=== PATIENT | female | born 1950 | race Caucasian/White ===

== ENCOUNTER 2022-01-02 13:52 | Emergency (ER) | payer MEDICARE, BC, SELFPAY ==
[2022-01-02 14:05] VITALS: BP 127/72; PULSE 73; RESP 18; TEMP 36.2; O2SAT 96; BMI 23.7
--- NOTE | 2022-01-02 14:26 | ED_ITS ---
HPI - General Adult General Chief complaint: Shoulder Injury/Pain Stated complaint: Pain in right [place]oulder Time Seen by Provider: 01/02/22 14:11 History of Present Illness HPI narrative: This 71-year-old female comes in with right shoulder pain over the past few weeks. She does not report any specific injury event. She has been to a chiropractor several times without any lasting relief. She states that she is having trouble sleeping at night. She has distinct trouble raising her arm forward and empty can position. She also has difficulty raising her arm above 90?. She had similar shoulder pains in the distant past which were relieved with a steroid injection. Related Data Home Medications Medication Instructions Recorded Confirmed bupropion HCl 300 mg 24 hr tablet, mg PO 01/02/22 extended release lisinopril 10 tab 01/02/22 mg-hydrochlorothiazide 12.5 mg tablet sertraline 100 mg tablet mg 01/02/22 simvastatin 40 mg tablet mg 01/02/22 Previous Rx's Medication Instructions Recorded hydrocodone 5 mg-acetaminophen 325 1 tab PO Q4-6H PRN pain #20 tabs 01/02/22 mg tablet Allergies Allergy/AdvReac Type Severity Reaction Status Date / Time No Known Drug Allergies Allergy Verified 01/02/22 14:04 Review of Systems Status of ROS: Reports: 10 or more systems reviewed and unremarkable except as noted in History and below Narrative: Constitutional: No fevers, no weight gain or loss. Eyes: No discharge. No vision changes. HENT: No congestion, no sore throat, no ear pain. Cardiovascular: No chest pain, no palpitations. Respiratory: No shortness of breath, no wheezes, no cough. Gastrointestinal: No abdominal pain, no vomiting, no diarrhea. Genitourinary: No dysuria, no hematuria. Musculoskeletal: Right shoulder pain with associated decreased range of motion. Skin: No rashes, no pruritis. Neurological: No dizziness, weakness, sensory change, speech change. Endo/Heme/Allergies: No bruising or bleeding. No polydipsia. Pysch: no suicidality, no anxiety, no insomnia. All other systems reviewed and are negative. Exam Narrative: Exam Narrative: Constitutional: Well-developed, well-nourished, no acute distress. HEENT: Normocephalic, atraumatic. Neck: Normal range of motion. Nontender. Supple. Heart: Regular. No murmurs. Normal rate. Intact distal pulses. Lungs: Clear to auscultation. No chest discomfort. No wheezes, rhonchi, or rales. Abdomen: Normal bowel sounds. Nontender. No rebound tenderness. Genitalia: Deferred. Back: No midline tenderness. Normal range of motion. Extremities: Right shoulder has normal parents without any sign of effusion or deformity. Empty can sign is positive. Lift-off sign is normal. Her internal and external rotation are intact. She has difficulty raising her arm above 90? due to pain. Skin: Intact. No rash. Warm. No erythema or pallor. Neurologic: No altered sensation. No weakness. Alert and oriented. Psychiatric: No suicidality. No anxiety or depression. No insomnia. Nursing notes and vitals signs are reviewed. Const: Vital Signs, click to edit/add: Vital Signs - 24 hr 01/02/22 14:05 Temperature 97.1 F L Pulse Rate [Right Pulse Oximeter] 73 Respiratory Rate 18 Blood Pressure [Le ft Upper Arm] 127/72 Pulse Oximetry 96 Oxygen Delivery Me thod Room Air Course Vital Signs Vital signs: Initial Vital Signs Temperature 97.1 F L 01/02/22 14:05 Temperature Source Temporal Artery Scan 01/02/22 14:05 Pulse Rate 73 01/02/22 14:05 Respiratory Rate 18 01/02/22 14:05 Blood Pressure 127/72 01/02/22 14:05 Blood Pressure Mean 90 01/02/22 14:05 Blood Pressure Position Supine 01/02/22 14:05 Pulse Oximetry 96 01/02/22 14:05 Oxygen Delivery Method 01/02/22 14:05 Vital Signs Temperature 97.1 F L 01/02/22 14:05 Pulse Rate 73 01/02/22 14:05 Respiratory Rate 18 01/02/22 14:05 Blood Pressure 127/72 01/02/22 14:05 Pulse Oximetry 96 01/02/22 14:05 Oxygen Delivery Method 01/02/22 14:05 Temperature 97.1 F L 01/02/22 14:05 Pulse Rate 73 01/02/22 14:05 Respiratory Rate 18 01/02/22 14:05 Blood Pressure 127/72 01/02/22 14:05 Pulse Oximetry 96 01/02/22 14:05 Oxygen Delivery Method 01/02/22 14:05 Medical Decision Making MDM Narrative Medical decision making narrative: This patient comes in with right shoulder pain that is not related to a certain injury. She is showing signs of rotator cuff impingement. In particular the supraspinatus tendon function is rather painful. She may have adhesive capsulitis. In any event she is willing to receive a therapeutic injection in the to the right shoulder joint. A mixture of 40 mg of triamcinolone with 1% lidocaine was administered by posterior approach. This was a total of 10 mL of fluid. She had some initial improvement with increased range of motion and decreased pain. I advised her to follow-up with orthopedic clinic as needed. She did also receive a prescription for some tablets of [place]. Discharge Plan Discharge Clinical Impression: Pain in right shoulder Patient Disposition: Home, Self-Care Condition: Improved Instructions: Shoulder Pain (ED) Additional Instructions: Take medication as needed and indicated. Follow up with orthopedic clinic if not improving or worsening. Prescriptions: New hydrocodone-acetaminophen 5-325 mg tablet 1 tab PO Q4-6H PRN (Reason: pain) Qty: 20 0RF No Action sertraline 100 mg tablet simvastatin 40 mg tablet bupropion HCl 300 mg tablet extended release 24 hr PO lisinopril-hydrochlorothiazide 10-12.5 mg tablet Follow Up/Referrals: Suzie Wilkins DO [Primary Care Provider] - Stand Alone Forms: [facility] Info Instructions
== END 2022-01-02 15:23 | disposition home or self-care (01) ==
PROVIDERS: Emergency Provider Emergency Medicine Emergency Medical Services; PCP Family Medicine
DX: M25.511 Pain in right shoulder (principal)
CPT/HCPCS: 20605; 99283

== ENCOUNTER 2023-07-25 10:40 | Outpatient (CLI) | payer MEDICARE, BC, SELFPAY ==
--- NOTE | 2023-07-25 11:00 | US_ITS ---
Final Report Patient: ANGELINA HOPKINS Facility:?[facility] Patient ID:?[id number] Site Patient ID:?[id number]. Site :?[id number] Study:?US Abdomen -07/25/2023 11:18:27 AM Ordering Physician:GIN FERMIN Final Report: INDICATION: PRIMARY BILIARY CHOLANGITIS COMPARISON: CT 10/25/2022, ultrasound 10/25/2022 TECHNIQUE: Real time felix scale imaging and color Doppler analysis was performed of the right upper quadrant. FINDINGS: The liver echotexture is coarsened with a macro lobular contour, as before. No intrahepatic mass by ultrasound. There is a normal appearance of the hepatic IVC and proximal abdominal aorta. There is no evidence of ascites. The gallbladder is of normal size and there are echogenic foci associated with the gallbladder wall measuring 3 millimeters or less. The gallbladder wall measures 2 mm in thickness. The common bile duct is of normal size and measures 6 mm in diameter at the level of the uriel hepatis. Hypodense structure within the pancreas has developed in the interim measuring 9 x 7 x 6 millimeters. There is no evidence of a stone or hydronephrosis within the right kidney. The right kidney measures 11.3 cm in length. IMPRESSION: Chronic liver disease. No ascites or intrahepatic mass by ultrasound. Echogenic foci within the dependent gallbladder may represent stones, adherent sludge or polyps. No biliary obstruction. Pancreatic nodule or cyst measuring 9 millimeters, new from prior studies. MRI recommended. Dictated by Lazarus Thomson MD @ 07/25/2023 11:48:42 AM (Electronic Signature)
== END 2023-07-25 10:41 | disposition home or self-care (01) ==
LOC: US 10:40
PROVIDERS: PCP Family Medicine; Visit Provider Physician Assistant
DX: K74.3 Primary biliary cirrhosis (principal); K76.9 Liver disease, unspecified; K86.2 Cyst of pancreas
CPT/HCPCS: 76705

== ENCOUNTER 2024-01-31 10:41 | Outpatient (CLI) | payer MEDICARE, BC, SELFPAY ==
--- NOTE | 2024-01-31 10:45 | CRLHL7_ITS ---
For Patients: As a result of the Century Cures Act, medical imaging exams and procedure reports are released immediately into your electronic medical record. You may view this report before your referring provider. If you have questions, please contact your health care provider. INDICATION: ADVANCED HEPATIC FIBROSIS COMPARISON: 07/25/2023 ultrasound, 10/25/2022 CT TECHNIQUE: Real time felix scale imaging and color Doppler analysis was performed of the right upper quadrant. FINDINGS: The liver echotexture is coarsened. Chronic simple cyst within the left hepatic lobe measures 9 x 8 x 7 millimeters. No intrahepatic mass. The main portal vein is patent with antegrade flow and measures 1.3 cm. There is a normal appearance of the hepatic IVC and proximal abdominal aorta. Trace ascites appears to be present. The gallbladder is of normal size and there is mild layering sludge. The gallbladder wall measures 1.5 mm in thickness. The common bile duct is of normal size and measures 6.0 mm in diameter at the level of the uriel hepatis. Cyst within the pancreas measures 6 x 8 x 5 millimeters, previously measuring 9 millimeters. There is no evidence of a stone or hydronephrosis within the right kidney. The right kidney measures 11.1 cm in length. IMPRESSION: Chronic hepatic fibrosis. Incidental subcentimeter liver cysts. Stable pancreatic cysts. Mild gallbladder sludge without biliary obstruction. Dictated by Lazarus Thomson MD @ 01/31/2024 1:32:49 PM (Electronically Signed)
== END 2024-01-31 10:42 | disposition home or self-care (01) ==
LOC: US 10:42
PROVIDERS: PCP Family Medicine; Visit Provider Internal Medicine Gastroenterology
DX: K74.02 Hepatic fibrosis, advanced fibrosis (principal); K76.89 Other specified diseases of liver; K82.9 Disease of gallbladder, unspecified
CPT/HCPCS: 76705

== ENCOUNTER 2024-07-29 09:17 | Outpatient (CLI) | payer MEDICARE, BC, SELFPAY ==
--- NOTE | 2024-07-29 09:15 | CRLHL7_ITS ---
For Patients: As a result of the Century Cures Act, medical imaging exams and procedure reports are released immediately into your electronic medical record. You may view this report before your referring provider. If you have questions, please contact your health care provider. CLINICAL HISTORY: Primary biliary cholangitis Comparison ultrasound 07/25/2023 FINDINGS: Coarse heterogeneous echotexture to the liver with nodular contour. Hypoechoic 0.9 centimeter in the left hepatic lobe again not as well visualized on the current study and appeared to represent a cyst on the prior study. This is unchanged in size. Normal directional flow in the main portal vein There is a normal appearance of the hepatic IVC and proximal abdominal aorta. There is no evidence of ascites. The gallbladder is of normal size and there is no evidence of intraluminal stones or sludge. Common tail artifact along the gallbladder wall could be seen with adenomyomatosis. The gallbladder wall measures 2 mm in thickness. The common bile duct is of normal size and measures 5 mm in diameter at the level of the uriel hepatis. Small hypoechoic area in the pancreas visualized measuring 0.6 x 0.5 x 0.5 centimeters this is not as well seen on the current study appeared more cystic on the prior study. Visualized pancreas otherwise is unremarkable. Right kidney is unremarkable. Hyperechoic area between the liver and the upper portion of the right kidney could be an area of prominent fat likely benign. This could be reassessed on follow-up imaging. IMPRESSION: 1. Cirrhotic appearance of the liver. A small 0.9 centimeter hypoechoic lesion in the left hepatic lobe unchanged in size likely reflects a small cyst not as well visualized on the current study. 2. Similar sized hypoechoic lesion in the pancreas again not as well visualized on the current study 3. Comet tail artifacts along the gallbladder wall could be seen with adenomyomatosis. 4. Hyperechoic area between the liver and upper portion of the right kidney could be an area of prominent fat likely benign and could be reassessed on follow-up imaging. Dictated by Fifi Boggs MD @ 07/31/2024 4:14:36 AM (Electronically Signed)
== END 2024-07-29 09:18 | disposition home or self-care (01) ==
LOC: US 09:19
PROVIDERS: PCP Family Medicine; Visit Provider Physician Assistant
DX: K74.3 Primary biliary cirrhosis (principal); K76.9 Liver disease, unspecified
CPT/HCPCS: 76705

== ENCOUNTER 2025-04-15 17:18 | Outpatient (CLI) | payer MEDICARE, BC, SELFPAY | END 2025-04-15 17:19 | disposition home or self-care (01) | LOC: AMB 04-18 20:46 | PROVIDERS: PCP Family Medicine; Visit Provider Emergency Medicine | DX: R42 Dizziness and giddiness (principal); R11.10 Vomiting, unspecified | CPT/HCPCS: A0425; A0427 ==

== ENCOUNTER 2025-04-15 18:01 | Observation (INO) | payer MEDICARE, BC, SELFPAY ==
--- OUTSIDE RECORDS SUMMARY | 2025-03-18 02:47 | XMS_ITS | Continuity of Care Document ---
Author Organization [facility] Address [address] [address] [place] [address] Phone Care Team Providers Care Video Manager Name Role Phone Adrianna Isaac Unavailable Unavailabl e Allergies, Adverse Reactions, Alerts Substance Reaction Status Criticality No Known Allergies Active No Inform ation Medications Medication Instructions Dosage Effective Dates (start - stop) Status Comments ursodiol 250 mg tablet take 2 tablets in the morning and 1.5 tablets in the evening daily. - Active magnesium gluconate 12.5 mg magnesium (250 mg) tablet - Active Zinc-220 50 mg zinc (220 mg) capsule - Active sertraline 100 mg tablet take 1 tablet by oral route every day 100 MG - Active BUPROPION HCL SR (unknown strength) take 1 tablet by oral route (Xl) 300mg Not Available - Active rosuvastatin 20 mg tablet take 1 tablet by oral route every day 20 MG - Active lorazepam 0.5 mg tablet take 2 tablet by oral route 3 times every day as needed 1 MG - Active Vitamin D3 50 mcg (2,000 unit) capsule - Active Alaway 0.025 % (0.035 %) eye drops instill 1 drop by ophthalmic route 2 times every day into affected eye(s) 1.00 drop - Active fluticasone propionate 50 mcg/actuation nasal spray,suspension spray 2 spray by intranasal route every day in each nostril as needed 100-100 MCG - Active Procedures Procedure Date Offic/outpt E&m Estab Mod-hi 2 Offic/outpt E&m Estab Mod-hi 4 24 Dietitian New Virtual Visit Offic/outpt E&m New Mod-hi Routine Serum Collection Advance Directives Directive Yes / No Effective Date File Name No Information Encounters Encounter Description Practice Location Reason(s) For Visit Diagnoses Date Provider Providers Copied on Encounter [facility], [address] [address], [place], [place], [id number], [place] tel:[phone] [place] [address] No Information 5 Yan Rodas. [address] [place] [address], [address], [id number], [place]. tel:[phone] [facility], [address] [address], [place], [id number], [place] tel:[phone] [place] [address] No Information Yan Rodas. [address] [place] [address], [id number], [place]. tel:[phone] [facility], [address] [address], [place], [id number], [place] tel:[phone] [facility] Advanced hepatic fibrosis 5 Yan Rodas. [address] [place] [address], [address], [id number], [place]. tel:[phone] Offic/outpt E&m Estab Mod-hi 2 [facility], [address] [address], [place], [place], [id number], [place] tel:[phone] [facility] GI Symptoms or Concerns (chief complaint) Primary biliary cholangitisEleva michael LFTsPancreatic lesion Yan Roads. [address] [place] [address], [id number], [place]. tel:[phone] Referring Provider: Referral Self, USE FOR SELF REFERRALS. [facility], [address] [address], [place], [place], [id number], [place] tel:[phone] [facility] No Information 5 Yan Rodas. [address] [facility], [facility] [address], [place], [place], [id number], [place]. tel:[phone] [facility], [address] [address], [place], [id number], [place] tel:[phone] [facility] Primary biliary cholangitis 5 Yan Rodas. [address] [facility], [facility] [address], [place], [id number], [place]. tel:[phone] [facility], [address] [address], [place], [id number], [place] tel:[phone] [facility] Advanced hepatic fibrosis 4 Agus Cooper. [address] [facility], [facility] [address], [place], [id number], [place]. tel:[phone] [facility], [address] [address], [place], [id number], [place] tel:[phone] [facility] Pancreatic lesion 4 Yan Rodas. [address] [facility], [facility] [address], [place], [id number], [place]. tel:[phone] [facility], [address] [address], [place], [place], [id number], [place] tel:[phone] [facility] Advanced hepatic fibrosisPrimary biliary cholangitis 4 Yan Rodas. [address] [facility], [facility] [address], [place], [id number], [place]. tel:[phone] [facility], [address] [address], [place], [place], [id number], [place] tel:[phone] [facility] Pancreatic lesion 4 Yan Rodas. [address] [facility], [address], [id number], [place]. tel:[phone] Offic/outpt E&m Estab Mod-hi 4 [facility], [address] [address], [place], [id number], [place] tel:[phone] [facility] GI Symptoms or Concerns (chief complaint) Primary biliary cholangitisAdvan delbert hepatic fibrosisPancreat ic lesion 4 Yan Rodas. [address] [facility], [facility] [address], [place], [id number], [place]. tel:[phone] Referring Provider: Suzie Wilkins DO, [address] [place] [address], [place], [address]. tel:[phone] [facility], [address] [address], [place], [id number], [place] tel:[phone] [facility] GI Symptoms or Concerns (chief complaint) Elevated LFTsDietary counseling and surveillance 3 Atul Redding. [address] [facility], [address], [id number], [place]. tel:[phone] Suzie Wilkins DO. tel:[phone] erring Provider: Referral Self, USE FOR SELF REFERRALS. [facility], [address] [address], [place], [id number], [place] tel:[phone] Primary biliary cholangitisEleva michael LFTs 3 No Information [facility], [address] [address], [place], [id number], [place] tel:[phone] [facility] Primary biliary cholangitis 3 Yan Rodas. [address] [place] [address], [address], [id number], [place]. tel:[phone] [facility], [address] [address], [place], [id number], [place] tel:[phone] [facility] Elevated LFTs 3 Yan Rodas. [address] [place] [address], [address], [id number], [place]. tel:[phone] Offic/outpt E&m New Mod-hi [facility], [address] [address], [place], [place], [id number], [place] tel:[phone] [facility] GI Symptoms or Concerns (chief complaint) Elevated LFTsChronic constipationAbno rmal CT scan, colon 3 Yan Rodas. [address] [facility], [facility] [address], [place], [id number], [place]. tel:[phone] Referring Provider: Suzie Wilkins DO, [address] [place], [address]. tel:[phone] [facility], [address] [address], [place], [place], [id number], [place] tel:[phone] [facility] No Information 3 Agus Cooper. [address] [facility], [facility] [address], [place], [id number], [place]. tel:[phone] Family History Family Member Type Diagnosis Age At Onset Father Problem (finding) Cirrhosis Father Problem (finding) Alcoholism Father Problem (finding) Cancer Immunizations Vaccine Date Status Comments Influenza, high-dose, split virus, quadrivalent, injectable, preservative free administered Note: [facility] bi-direct ional interface ; Source: Other Registry influenza, high-dose seasona l, quadrivalent, 0.7mL dose, preservative free administered Note: [facility] bi-direct ional interface ; Source: Other Registry Influenza, high-dose, split virus, trivalent, injectable, preservative free administered Note: [facility] bi-direct ional interface ; Source: Other Registry influenza, high dose seasona l, preservative-free administered Note: [facility] bi-direct ional interface ; Source: Other Registry Influenza, adjuvanted, inactivated, trivalent, injectable, preservative free administered Note: [facility] bi-directional interface ; Source: Other Registry Seasonal trivalent influenza vaccine, adjuvanted, preservative free administered Note: [facility] bi-direct ional interface ; Source: Other Registry Pneumovax 23 administered Note: [facility] bi-d irectional interface ; Source: Other Registry Influenza, adjuvanted, inactivated, trivalent, injectable, preservative free administered Note: [facility] bi-directional interface ; Source: Other Registry Prevnar 13 administered Note: [facility] bi-d irectional interface ; Source: Other Registry Seasonal trivalent influenza vaccine, adjuvanted, preservative free administered Note: [facility] bi-direct ional interface ; Source: Other Registry Afluria Qd administered Note: [facility] bi-directional interface ; Source: Other Registry zoster vaccine, live administered Note: [facility] bi-directional interface ; Source: Other Registry Afluria Qd administered Note: [facility] bi-directional interface ; Source: Other Registry Afluria Qd administered Note: [facility] bi-directional interface ; Source: Other Registry tetanus toxoid, reduced diphtheria toxoid, and acellular pertussis vaccine, adsorbed administered Note: [facility] b i-directional interface ; Source: Other Registry Influenza, split virus, trivalent, injectable, preservative free administered Note: [facility] bi-direct ional interface ; Source: Other Registry Influenza, seasonal, injecta ble, preservative free administered Note: [facility] bi-direct ional interface ; Source: Other Registry Influenza, split virus, trivalent, injectable, preservative free administered Note: [facility] bi-direct ional interface ; Source: Other Registry Influenza, seasonal, injecta ble, preservative free administered Note: [facility] bi-direct ional interface ; Source: Other Registry Influenza, split virus, trivalent, injectable, contains preservative administered Note: [facility] bi-direct ional interface ; Source: Other Registry Influenza, seasonal, injectable administe red Note: [facility] bi- directional interface ; Source: Other Registry Influenza, split virus, trivalent, injectable, contains preservative administered Note: [facility] bi-direct ional interface ; Source: Other Registry Influenza, seasonal, injectable administe red Note: [facility] bi- directional interface ; Source: Other Registry Influenza, split virus, trivalent, injectable, contains preservative administered Note: [facility] bi-direct ional interface ; Source: Other Registry Influenza, seasonal, injectable administe red Note: [facility] bi- directional interface ; Source: Other Registry Influenza, split virus, trivalent, injectable, contains preservative administered Note: [facility] bi-direct ional interface ; Source: Other Registry Influenza, seasonal, injectable administe red Note: [facility] bi- directional interface ; Source: Other Registry Influenza, split virus, trivalent, injectable, contains preservative administered Note: [facility] bi-direct ional interface ; Source: Other Registry Influenza, seasonal, injectable administe red Note: [facility] bi- directional interface ; Source: Other Registry Payers Payer name Insurance type Covered democrat ID Authoriza tion(s) Medicare NGS MB [id number] [facility] Medicare Supplement BL [id number] Social History Type Description Quantity Date Captured Comments Alcohol Use Details Unknown Caffeine Use Details Unknown Tobacco Use Status No Information Smoking Status No Information Sex Female Chief Complaint And Reason For Visit No Information Reason For Referral Reason For Referral No Information Plan Of Treatment Date Type Action Status Referral Ordered: CBC W/diff, Whole Blood Appointment date/timeframe: 01/25/2024 ordered Referral Ordered: follow-up visit 1 Year Appointment date/timeframe: 1 Year ordered Referral Ordered: Hepatoma Protocol Appointment date/timeframe: First Available ordered Referral Ordered: MRCP Biliary/Pancreatic Ducts WITHOUT And WITH Contrast Appointment date/timeframe: 12/10/2023 ordered Referral Ordered: follow-up visit for Dietary Counseling First Available Appointment date/timeframe: First Available ordered Referral Ordered: Hepatic Function Panel Appointment date/timeframe: 12/30/2022 ordered Referral Ordered: MRI Elastography Liver WITHOUT And WITH Contrast Appointment date/timeframe: 01/24/2023 ordered Referral Ordered: Colonoscopy Appointment date/timeframe: First Available ordered Referral Ordered: MRI Liver WITHOUT And WITH Contrast Appointment date/timeframe: 01/24/2023 ordered History Of Present Illness Encounter Date Complaint History Of Prese nt Illness GI Symptoms or Concerns Kathia Parrish is a 74-year-old female seen today for 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 Patient was previously noted to have advanced fibrosis on MRI with the elastography without evidence of portal hypertension. She was previously started on ursodiol for management of PBC.Most recent labs on 07/25/2024 included an unremarkable hepatic function panel, BMP and CBC. INR was also normal at 1.0 and AFP normal at 2.5. Abdominal ultrasound on 07/29/2024 noted a small 0.9 cm hypoechoic lesion in the left hepatic lobe unchanged in size likely reflecting a small cyst. Prior to this patient did have MRCP WWO on 08/06/23 with [facility] which noted a 0.7cm cystic lesion in the body of the pancreas-repeat MRI recommended in 12 months.Today, patient reports she has been feeling well aside from having difficulty sleeping at night. She has started taking magnesium glycinate but has not noted clear help with this. She is continuing to take ursodiol 3.5-250 mg tablets daily-she reports this is quite expensive-it had been over $300 for a 3-month supply through her insurance. She has been filling this with [employer] but still notes a 3-month supply is still overall $120.She does endorse some pruritus but notes that this is manageable. Denies any abdominal pain, abdominal distention, lower extremity edema, melena, hematochezia or confusion. Denies any alcohol consumption.She reports a bone density scan completed recently with her primary care provider-was told she has osteopenia she is on vitamin D supplement currently. GI Symptoms or Concerns Kathia Parrish is a 73-year-old female seen today for follow-up of primary biliary cholangitis.I initially saw patient in clinic on 11/20/2022. She was referred to us for concern of cirrhosis and elevated LFTs.Prior to this visit, she was seen at [facility] in the emergency room in October 2022 for a sore throat and chest pain and was found to have abnormal liver chemistries with a total bilirubin of 0.6 AST 105 ALT 148 alkaline phosphatase 352 albumin 4.7 and INR of 1.02. CBC was unremarkable. A right upper quadrant ultrasound had shown a mild micronodular appearance of the liver surface with possible cirrhosis. A subsequent CT of the abdomen and pelvis showed morphological start sequela of cirrhosis with some centimeter hypodense lesion in segment 2/3 too small to characterize. This send also noted mild circumferential wall thickening of the sigmoid colon and a large stool burden.She has a history of prior alcohol use which ended 5 years ago. She was noted to have negative negative hepatitis A and hepatitis B serologies. Also noted to be immune to the hepatitis B virus.She does have a history of liver cirrhosis in her father. She had recently been changed from simvastatin to rosuvastatin in October 2022 and had previously been on ivermectin for a couple years for COVID prophylaxis and had been taking a Berberine supplement and K2 initially in addition to a magnesium vitamin D3 and zinc supplement. She had also reported drinking a lot of Coke but had cut down at the time of our visit to 1 can a day. She did meet with our dietitian to discuss a low carbohydrate diet and further details.Given concern for liver cirrhosis and risk factors for nonalcoholic fatty liver disease including hypertension hyperlipidemia and significant consumption of sweets I had recommended she decrease intake of simple carbohydrates,. I had recommended she also stop herbal supplements and ivermectin.Regarding her constipation, and colitis on CT I had recommended a colonoscopy for further evaluation.Laboratories in November 2022 revealed a normal alpha-1 antitrypsin negative smooth muscle antibody and JIMMY. Antimitochondrial antibody was noted to be positive at a titer of 1: 320 and hepatic function panel again revealed elevated transaminases with an AST of 68 ALT 63 alkaline phosphatase 377. Celiac serologies were noted to be negative. Ferritin, Iron/TIBC wnl. As she met criteria for diagnosis of primary biliary cholangitis she was subsequently started on ursodiol 875 mg daily.MRI with with elastography was obtained on 12/20/2022 which revealed stage III-IV fibrosis with a nodular contour. Along with a subcentimeter cystic structure in the pancreatic neck/body. Follow-up MRI was recommended in 1 year.Most recently, patient underwent laboratory testing on 04/25/2023 which revealed improvement in her aminotransferases and alkaline phosphatase with normal total bilirubin. Alkaline phosphatase 213 ALT 35 AST 37.Since her last visit, patient has made significant changes in her lifestyle. She has cut back on her consumption of simple carbohydrates and is no longer drinking Coke on a daily basis. She wonders if it is okay for her to eat any bread, fruit or fibers cereal as this helps her have a bowel movement. She continues to take ursodiol as prescribed.She denies any issues with abdominal distention, lower extremity edema, melena or hematochezia. She has had issues with constipation in the past and reports she started eating a bran cereal for breakfast which helps her have a bowel movement 1-2 times per day. She has not had any pain. She had a colonoscopy completed last February and believes she was told to have this repeated in 3 years. I do not have these records but will request. She also has questions regarding what she can take for pain medications and herbal supplements. She does endorse some issues with fatigue but notes this has improved since she started taking a children's multivitamin. She does endorse some itching but reports it is not terribly bothersome. Also reports she has noted easy hair breakage that has been present for the last few years.She notes a lot of stress in her life lately and wonders if this can contribute to liver disease. She lost her grandson not too long ago and her sister recently had a stroke and is living out of state which has been very stressful for her. She is not sure if she would be interested in therapy/ counseling. Has not been getting much exercise outside of walking. GI Symptoms or Concerns New Simran ent Nutrition AssessmentAnthropometrics: 5'4.75 Wt: has lost 10lb recently, today 130lbFood and Exercise History: Trying to follow a low carb diet. Current food choices include low carb tortillas, peanut butter, cheeses, egg salad, cereal at night - all bran, lemon water, fruit smoothies with zero sugar bermudian yogurt, low carb bread, grass fed beefEstimated Energy and Nutrition Needs: 1500-1700cal/day 60g protein/day30g carb per meal<2000mg Na/dayNutrition Diagnosis:Food and nutrition related knowledge deficit related to nutrition for liver health as evidenced by patient request for information. Nutrition Discussion and Education:Met with patient for virtual visit today. Daughter in background. Patient notes that she has a history of elevated LFTs though she is uncertain, based on all her recent testing, exactly what stage her liver is in - fatty liver, cirrhosis, fibrosis, etc. I encouraged her to follow up with her [facility] medical provider regarding this to get clarification of the exact state of her liver and review her tests with her. She is currently trying to eat a low carbohydrate diet. She has done alot of online research and had many questions for me today regarding diet. These were answered to the best of my ability. She has been eating minimally processed foods as well. I encouraged her to make sure her protein intake is adequate and provided recommendations. I encouraged her to be mindful of her sodium intake as well. She will continue watching her carbohydrate intake and she has noted a 10lb weight loss with this, though she does not want to lose any more. She is not exercising currently and I encouraged her to get some form of low to moderate intensity movement most days. She was amenable to this. She is appreciative of visit today and is welcome to follow ups. GI Symptoms or Concerns Kathia Parrish is a 72 y/o female seen today at the request of Dr. Suzie Wilkins DO for concern of Cirrhosis and elevated LFTs. She is accompanied today by her daughter, Ada. She was recently seen in the Emergency room at [facility] on 10/25/2022 for concern of sore throat and chest pain. She was found to have Pleurisy. At this point she was noted to have elevated LFTs and had reportedly been started on a new medication for cholesterol about a week prior. Laboratory testing at this time revealed an unremarkable CBC, normal INR of 1.02 total bilirubin 0.6, AST 105, ALT 148, alkaline phosphatase 352 albumin 4.7. Right upper quadrant ultrasound at that time revealed a micronodular appearance of the liver surface with possible cirrhotic liver morphology. CT of the abdomen and pelvis morphologic sequela of cirrhosis with a subcentimeter hypodense lesion in segment 2/3 2 small to characterize. Correlation was recommended with alpha fetoprotein. She was also noted to have mild circumferential wall thickening of the sigmoid colon potentially reflecting colitis and a large fecal burden throughout the colon suggestive of constipation. She was then seen for follow-up as an outpatient on 11/02 22 at this time she had reported a prior use of heavy alcohol consumption which ended 5 years ago. Laboratory testing on 11/02 again revealed a normal CBC, negative hepatitis B core IgM, negative hepatitis-B surface antigen, positive hepatitis-B surface antibody consistent with immunity and negative hepatitis a antibody. Her AFP was noted to be within normal ranges at less than 1.8.Patient's daughter showed me lab results from 11/02/22 which showed Alk phos 370, ALT 84, AST 68. Patient reports. she has been feeling well since the discharge from hospital. In our discussion today, patient tells me that she has never been told previously there was any concern regarding liver disease. She denies any abdominal pain, lower extremity edema, abdominal distention, jaundice or scleral icterus, melena, hematochezia. She does endorse easy bruising.She reports [facility]. She reports she was told she had a few polyps. She does have a longstanding history of constipation having a bowel movement every once every 4 days or every other day. She notes that consuming raw carrots is helpful for helping her have a bowel movement. She does have some hard and lumpy bowel movements. PMHHTN, HLD, colon polyps, anxiety, depression no diabetesFAMILY HISTORYLiver disease- Dad, cirrhosisSOCIAL HISTORYEtOH- Period of 3 years about 5 years ago where they would go out with friends and drink more heavily, No alcohol recently Tobacco use- none, quit 40 years agoIV/Intranasal drug use- none Transfusions- none Meds- changed from simvastatin to rosuvastatin in the beginning of october, Ivermectin for a couple years for COVID prophylaxis Herbal supplements- Berberine for diabetes (about 2 months ago), K2 (for 1 month) , Mg, D3 and Zinc No recent travel, no recent sick contacts NSAIDs- No NSAIDs Tylenol- XS not often- 1 month ago took a few dosesDrinks lots of Coke- on daily basis multiple cans, decreased to 1 can per day, not enough water Functional Status Date Functional Assessmen t No Information Instructions Date Instruction Additional Infor pito 1. Continue to work on your diet, you are doing well with this. See below for specific recommendations: 1500-1700cal/day (may need to increase slightly)60g protein/day30g carb per meal<2000mg Na/day*These will not be perfect every day - don't stress about it. This is just a guideline to aim for and keep in mind. 2. If your weight loss continues and you are uncomfortable with this, you can try drinking low carb nutrition shakes in between meals to increase calories. 3. Try to get some form of low/moderate intensity movement most days. This has many benefits including to your liver. 4. Feel free to make a follow up appointment with me at any time or send questions/concerns through the patient portal. Related to Elevated LFTs Fatty Liver Diet Guidelines Rela michael to Elevated LFTs Assessments Type Assessment Date No Information Patient Care Teams Name Effective Dates (start - stop) Status Members No Information
--- OUTSIDE RECORDS SUMMARY | 2025-03-18 02:47 | XMS_ITS | Continuity of Care Document ---
Author Organization [facility] Address [address] [address] [place] [address] Phone Care Team Providers Care Segment Block Layer Name Role Phone Adrianna Isaac Unavailable Unavailabl [...] Diagnoses Date Provider Providers Copied on Encounter [facility], [address] [address], [place], [place], [id number], [place] tel:[phone] [place] [address] No Information 5 Yan Rodas. [address] [place] [address], [address], [id number], [place]. tel:[phone] [facility], [address] [address], [place], [id number], [place] tel:[phone] [place] [address] No Information Yan Rodas. [address] [place] [address], [id number], [place]. tel:[phone] [facility], [address] [address], [place], [id number], [place] tel:[phone] [facility] Advanced hepatic fibrosis 5 Yan Rodas. [address] [place] [address], [address], [id number], [place]. tel:[phone] Offic/outpt E&m Estab Mod-hi 2 [facility], [address] [address], [place], [id number], [place] tel:[phone] [facility] GI Symptoms or Concerns (chief complaint) Primary biliary cholangitisEleva michael LFTsPancreatic lesion Yan Rodas. [address] [place] [address], [id number], [place]. tel:[phone] Referring Provider: Referral Self, USE FOR SELF REFERRALS. [facility], [address] [address], [place], [id number], [place] tel:[phone] [facility] No Information 5 Yan Rodas. [address] [facility], [facility] [address], [place], [place], [id number], [place]. tel:[phone] [facility], [address] [address], [place], [id number], [place] tel:[phone] [facility] Primary biliary cholangitis 5 Yan Rodas. [address] [facility], [facility] [address], [place], [id number], [place]. tel:[phone] [facility], [address] [address], [place], [id number], [place] tel:[phone] [facility] Advanced hepatic fibrosis 4 Agus Cooper. [address] [facility], [facility] [address], [place], [id number], [place]. tel:[phone] [facility], [address] [address], [place], [id number], [place] tel:[phone] [facility] Pancreatic lesion 4 Yan Rodas. [address] [facility], [facility] [address], [place], [id number], [place]. tel:[phone] [facility], [address] [address], [place], [id number], [place] tel:[phone] [facility] Advanced hepatic fibrosisPrimary biliary cholangitis 4 Yan Rodas. [address] [facility], [facility] [address], [place], [id number], [place]. tel:[phone] [facility], [address] [address], [place], [id number], [place] tel:[phone] [facility] Pancreatic lesion 4 Yan Rodas. [address] [facility], [address], [id number], [place]. tel:[phone] Offic/outpt E&m Estab Mod-hi 4 [facility], [address] [address], [place], [id number], [place] tel:[phone] [facility] GI Symptoms or Concerns (chief complaint) Primary biliary cholangitisAdvan delbert hepatic fibrosisPancreat ic lesion 4 Yan Rodas. [address] [facility], [facility] [address], [place], [id number], [place]. tel:[phone] Referring Provider: Suzie Wilkins DO, [address] [place] [address], [place], [address]. tel:[phone] [facility], [address] [address], [place], [id number], [place] tel:[phone] [facility] GI Symptoms or Concerns (chief complaint) Elevated LFTsDietary counseling and surveillance 3 Atul Redding. [address] [facility], [address], [id number], [place]. tel:[phone] Suzie Wilkins DO. tel:[phone] erring Provider: Referral Self, USE FOR SELF REFERRALS. [facility], [address] [address], [place], [id number], [place] tel:[phone] Primary biliary cholangitisEleva michael LFTs 3 No Information [facility], [address] [address], [place], [id number], [place] tel:[phone] [facility] Primary biliary cholangitis 3 Yan Rodas. [address] [place] [address], [address], [id number], [place]. tel:[phone] [facility], [address] [address], [place], [id number], [place] tel:[phone] [facility] Elevated LFTs 3 Yan Rodas. [address] [place] [address], [address], [id number], [place]. tel:[phone] Offic/outpt E&m New Mod-hi [facility], [address] [address], [place], [place], [id number], [place] tel:[phone] [facility] GI Symptoms or Concerns (chief complaint) Elevated LFTsChronic constipationAbno rmal CT scan, colon 3 Yan Rodas. [address] [facility], [facility] [address], [place], [id number], [place]. tel:[phone] Referring Provider: Suzie Wilkins DO, [address] [place], [address]. tel:[phone] [facility], [address] [address], [place], [place], [id number], [place] tel:[phone] [facility] No Information 3 Agus Cooper. [address] [facility], [facility] [address], [place], [id number], [place]. tel:[phone] Family History Family Member Type Diagnosis Age [...] Registry Payers Payer name Insurance type Covered constitution party ID Authoriza tion(s) Medicare NGS MB [id number] [facility] Medicare Supplement BL [id number] Social History Type Description Quantity Date Captured [...] insurance. She has been filling this with [employer] but still notes a 3-month supply is [...] to this visit, she was seen at [facility] in the emergency room in October 2022 [...] lemon water, fruit smoothies with zero sugar mexican yogurt, low carb bread, grass fed beefEstimated [...] encouraged her to follow up with her [facility] medical provider regarding this to get clarification [...] recently seen in the Emergency room at [facility] on 10/25/2022 for concern of [...] [facility] the [facility] [...]
--- OUTSIDE RECORDS SUMMARY | 2025-04-15 18:04 | XMS_ITS | Clinical Summary ---
Author Organization [facility] Address [address] [place] [address] Care Team Providers Care Dumpman Name Role Phone Unavailable Primary Care Provider Unavailabl e Source Comments You are receiving this document as you are listed as the primary care provider,follow-up provider, or the patient has been referred to you for consultation.This is in compliance with the Medicare and[facility] Cent[facility] EHR Incentive Program,which states Providers who transition their patient to another setting of careor provider of care or refers their patient to another provider of care shouldprovide summary care record for each transition of care or referral. [facility] Social History Tobacco Use Types Packs/Day Years Used Date Smoking Tobacco: Never Assessed Comments Unknown Sex and Gender Information Value Date Recorded Sex Assigned at Not on file Legal Sex Female 10:09 AM CDT Gender Identity Not on file Sexual Orientation Not on file Plan of Treatment Health Maintenance Due Date Last Done Comments Colon Cancer Screening Plan Due 1950 Hep C Screening (Preventive Services) 1950 Medicare Annual Wellness Visit 1950 Mammogram 1950 DTaP/Tdap/Td Vaccine (1 - Tdap) 02/06/1971 Cholesterol 02/06/1997 Pneumococcal Vaccine 50+ Yrs (1 of 1 - PCV) 02/06/2002 Zoster/Shingles Vaccine (1 of 2) 02/06/2002 Dexa 02/06/2017 COVID-19 Vaccine ( - 2023-2 5 season) 2025 Influenza Vaccine (#1) 2025 RSV Vaccine (1 - 1-dose 75+ series) 02/06/2027 HepA Vaccine Aged Out No longer eligi ble based on patient's age to complete this topic HepB Vaccine Aged Out No longer eligi ble based on patient's age to complete this topic Hib Vaccine Aged Out No longer eligi ble based on patient's age to complete this topic MCV4 Vaccine Aged Out No longer eligi ble based on patient's age to complete this topic Meningococcal B Vaccine Aged Out No l onger eligible based on patient's age to complete this topic Insurance [facility] MEDICARE SUPPLEMENT MEDICARE
--- OUTSIDE RECORDS SUMMARY | 2025-04-15 18:04 | XMS_ITS | Clinical Summary ---
Author Organization [facility] Address [address] [place] [id number] Care Team Providers Care Weapons Specialist Name Role Phone Suzie Wilkins DO Unavailable [phone] Suzie Wilkins DO Primary Care Provider [phone] Allergies Active Allergy Reactions Criticality Noted Date Comments Amoxicillin-Pot Clavulanate Stomach Upset 03/29 Levonorgestrel-Ethinyl Estrad Itching High 2022 Medications ursodioL (Ra) 250 mg tablet take 2 tablets in the morning and 1.5 tablets in the evening daily. 3 Active fluticasone (50 mcg per actuation) nasal solution (FLONASE)Indication s:Allergic rhinitis, unspecified seasonality, unspecified trigger Inhale 2 Sprays into affected nostril(s) once daily. 16 g 3 4 Active LORazepam (ATIVAN) 0.5 mg tabIndications:Anxi ety Take 1 Tablet (0.5 mg) by mouth 2 times daily if needed for Anxiety. 10 Tablet 5 Active cholecalciferol (VITAMIN D3) 2,000 unit capsule Take 4,000 units by mouth once daily. Active buPROPion (WELLBUTRIN XL) 150 mg Extended-Release tabletIndications:D epression, unspecified depression type Take 1 Tablet (150 mg) by mouth once daily. 90 Tablet 3 5 Active sertraline (ZOLOFT) 50 mg tabletIndications:D epressive disorder Take 1 Tablet (50 mg) by mouth once daily. 90 Tablet 3 5 Active rosuvastatin (CRESTOR) 20 mg tabletIndications:H yperlipidemia, unspecified hyperlipidemia type Take 1 Tablet (20 mg) by mouth at bedtime. 90 Tablet 2 5 Active Active Problems Problem Noted Date Diagnosed Date Skin cancer 07/16/2024 Overview (09/08/2024): 07/14/24: Left medial canthus, BCC superficial and nodular, Mohs done 09/08/[address] Hough Cirrhosis of liver without a scites, unspecified hepatic cirrhosis type 06/21/2023 Liver fibrosis 12/24/2022 Overview (12/24/2022): Stage 3-4 per [place] 12/2022. Additionally, the liver does have a nodular appearance suggesting cirrhosis of the liver or advanced scarring Pancreatic cyst 12/24/2022 Overview (12/24/2022): Found on MRI with [facility] 12/2022, Needs follow up imaging with [facility] 12/2023 Elevated liver enzymes 11/02/2022 Overview (11/02/2022): Found in ER 10/2022. Abdomen US and CT with evidence cirrhosis. Further labs ordered, GI referral Adenomatous colon polyp 11/22/2017 Overview (02/14/2022): Colonoscopy 11/2017 large cecal polyp, repeat in 6 months at [facility]. Colonoscopy 08/2018 3 mm polyp, repeat in 3 years Colonoscopy 02/2022 3-TA, repeat in 5 years, propofol, colowrap Depressive disorder, not elsewhere classified Other and unspecified hyperlipidemia 09/05/2006 Allergic rhinitis, cause unspecified 09/05/2006 Unspecified essential hypertension 09/05/2006 Obesity, unspecified 09/05/2006 Encounters Date Type Department Care Team Description 03/03/2025 10:30 AM CDT Orders Only [facility] [place] [address] [facility] [place] [place] [address] Lab, [place] [facility] 03/03/2025 Travel 02/16/2025 Transcribe Orders [facility] [place] [phone] Adrianna Heredia PA from Last 3 Months Immunizations Immunization Administration Dates Next Due AMB Influenza, IIV3 (Age >=3 years)(Flu Clinic Only) 05/12/2008 Influenza, High-dose Inactivated 03/25/2019 Influenza, High-dose Quadriv alent Inactivated 06/14/2020 Influenza, IIV3 (Age 6-35 mos) 02/08/2011,2009 Influenza, IIV3 (Age >=3 years) 03/26/20 13,02/23/2012,02/08/2011,2009,03/02/2009,05/12/2008,05/24/2006,1 ,04/03/2003 Influenza, IIV4 03/29/2016,02/25/2015,02/17/2014 Influenza, Inactivated IIV3 (Age 65+ Years) Preserv Free 07/12/2018,05/24/2017 Pneumococcal Poly,23-Valent (Pneumovax) 07/12/2018 Pneumococcal conj 13-Valent (Prevnar 13) 05/24/2017 Td (Age >=7 Years) 06/13/2004 Tdap 12/22/2011 Zoster (Zostavax-ZVL, live) 03/26/2015 Family History Medical History Relation Name Comments Alcohol/Drug Father Cancer Father oral Diabetes Father Diabetes Maternal Grandmother Alcohol/Drug Mother Hyperlipidemia Mother Cancer-breast Paternal Aunt Cancer-ovarian No Family History Relation Name Status Comments Father (Age 63) cancer Maternal Grandmother Mother (Age 60) heart Paternal Aunt Social History Tobacco Use Types Packs/Day Years Used Date Smoking Tobacco: Former Smokeless Tobacco: Never Tobacco Cessation:Counseling Given: Yes Comments:quit 27 years ago Alcohol Use Standard Drinks/Week Comments Not Currently 0 (1 standard drink = 0.6 oz pur e alcohol) PHQ-2 Answer Date Recorded PHQ-2 TOTAL SCORE 0 07/30/2024 Social Connections Answer Date Recorded Do you often feel lonely or isolated from those around you? 0 07/04/2024 Financial Resource Strain Answer Date R ecorded Difficulty of Paying Living Expenses 3 07/04/2024 Difficulty of Paying Living Expenses Not on file 07/04/2024 Food Insecurity Answer Date Recorded Do you worry your food will run out before you are able to buy more? 1 07/04/2024 Transportation Needs Answer Date Record ed Does lack of transportation keep you from medica l appointments? 1 07/04/2024 Does lack of transportation keep you from work, meetings or getting things that you need? 1 07/04/2024 Housing Stability Answer Date Recorded What is your housing situation today? 1 07/04/2024 Utilities Answer Date Recorded Do you have trouble paying f or utilities (for example, heat, electricity, water, phone)? 1 07/04/2024 Comments No Sex and Gender Information Value Date Recorded Sex Assigned at Not on file Legal Sex Female 6:12 AM COACH CLEANER Gender Identity Not on file Sexual Orientation Not on file Occupation Industry Job Start Date Job End Date Not on file Not on file Not on file Not on file Obstetrics History Para Term AB IAB SAB Ectopic Multiple Livin g Live Births 4 4 4 4 4 Date Outcome GA Total Labor Labor/2nd/3rd Weight Sex Type Anes PTL Melly A1 A5 Name Clin Term Living Term Living Term Living Term Living Last Filed Vital Signs Vital Sign Reading Time Taken Comments Blood Pressure 125/75 07/30/2024 3:06 PM COACH CLEANER Pulse 89 07/30/2024 3:06 PM COACH CLEANER Temperature 36.7 C (98 F) 08/03/2018 4:01 PM COACH CLEANER Respiratory Rate 16 08/03/2018 4:01 PM COACH CLEANER Oxygen Saturation 97% 07/30/2024 3:06 PM COACH CLEANER Inhaled Oxygen Concentration - - Weight 56.7 kg (125 lb) 07/30/2024 3:06 PM COACH CLEANER Height 160 cm (5' 3) 07/30/2024 3:06 PM COACH CLEANER Body Mass Index 22.14 07/30/2024 3:06 PM COACH CLEANER Plan of Treatment Health Maintenance Due Date Last Done Comments Zoster (shingles) series for age 50+ (2 of 3) 05/21/2015 03/26/2015 Tetanus booster 12/21/2021 12/22/2011, 06/13/2004 Mammogram for age 45-75 10/20/2023 10/20/19, 09/27/2021, 08/30/2020, Additional history exists Influenza Vaccine (#1) 2025 9, 07/12/2018, 05/24/2017, Additional history exists Colonoscopy through age 75 02/10/202502/10, 02/10/2022, 02/10/2022, Additional history exists BMI (ht and wt on same day) for age 18+ 07/30/2025 07/30/2024, 10/16/2022, 09/27/2021, Additional history exists Depression screening for age 12+ 07/30/2025 07/30/2024, 06/21/2023, 05/10/2023, Additional history exists Medicare Wellness for age 65+ 07/31/2025 07/30/2024, 10/16/2022, 09/27/2021, Additional history exists RSV vaccine for adults or (1 - 1-dose 75+ series) 02/06/2027 Lipids for age 45-75 03/03/2030 03/03/2025, 07/30/2024, 10/12/2022, Additional history exists Pneumococcal series for age 50+ Completed 07/12/2018, 05/24/2017 Hepatitis C screening for age 18-79 Completed 09/27/2021 DEXA/DXA scan for age 65+ Completed 07/18/2023, Hepatitis B series for 19+ Aged Out N o longer eligible based on patient's age to complete this topic Procedures Procedure Name Priority Date/Time Associated Diagnosis Comments LIPID PANEL W REFLEX MEASURED LDL Routine 03/03/2025 10:35 AM CDT Hyperlipidemia, unspecified hyperlipidemia type XR DXA BONE DENSITY 2 SITES AXIAL Routine 07/18/2023 1:34 PM COACH CLEANER Primary biliary cholangitis (HC) Advanced hepatic fibrosis Pancreatic lesion (HC) XR MAMMO RACHAEL BILAT SCREEN Routine 10/19/2022 1:26 PM CDT Visit for screening mammogram COLONOSCOPY SCREENING Routine 02/10/2022 11:11 AM CDT History of colon polyps ANTI HCV Add On 09/27/2021 11:15 AM CDT Need for hepatitis C screening test from Last 3 Months or Most Recently Relevant to Health Maintenance Results * (ABNORMAL) LIPID PANEL W REFLEX MEASURED LDL (03/03/2025 10:35 AM CDT) CHOLESTEROL, TOTAL 228(H) <200 mg/dL 03/04/2025 4:21 AM CDT [facility] TRIGLYCERIDES 64 <150 mg/dL 03/04/2025 4:21 AM CDT [facility] HDL CHOLESTEROL 94 > OR = 50 mg/dL 03/04/2025 4:21 AM CDT [facility] NON HDL CHOLESTEROL 134(H) <130 mg/dL (calc) 03/04/2025 4:21 AM CDT [facility] Comment: For patients with diabetes plus 1 major ASCVD risk factor, treating to a non-HDL-C goal of <100 mg/dL (LDL-C of <70 mg/dL) is considered a therapeutic option. CHOL/HDLC RATIO 2.4 <5.0 (calc) 03/04/2025 4:21 AM CDT [facility] LDL-CHOLESTEROL 118(H) mg/dL (calc) 03/04/2025 4:21 AM CDT [facility] Comment: Reference range: <100 Desirable range <100 mg/dL for primary prevention; <70 mg/dL for patients with CHD or diabetic patients with > or = 2 CHD risk factors. LDL-C is now calculated using the Ebony calculation, which is a validated novel method providing better accuracy than the Friedewald equation in the estimation of LDL-C. Yan SS et al. TRA. 2013;310(19): 3922-8861 (http://education.[employer].YouAre.TV/faq/THE444) Blood BLOOD SPECIMEN / Unknown [facility] / Unknown 03/03/2025 10:35 AM CDT 03/03/2025 10:35 AM CDT Narrative [facility] - 03/04/2025 4:21 AM CDT FASTING:UNKNOWN FASTING: UNKNOWN us Suzie Wilkins DO CHEMISTRY Final Resu lt [facility] [address] [place] [address], * (ABNORMAL) XR DXA BONE DENSITY 2 SITES AXIAL (07/18/2023 1:34 PM COACH CLEANER) Anatomical Region Laterality Modality Spine, HIPS, HIPL, HIPR Other Impressions 07/20/2023 4:29 PM COACH CLEANER Osteopenia. RECOMMENDATIONS: The National Osteoporosis Foundation recommends pharmacologic treatment for patients with T-scores of -2.5 or less, patients with prior history of fragility fractures, or patients with 10-year probability of greater than 3% at hips or greater than 20% of suffering major osteoporotic fractures. Recommend continued optimization of calcium and vitamin D intake through dietary means and/or supplementation and regular exercise. Consider pharmacologic therapy for osteopenia with increased fracture risk. Follow-up bone density reading in 2 years if therapy initiated to assess therapeutic efficacy. Carola Salomon PA-C [facility] 07/20/2023 Narrative 07/20/2023 4:29 PM COACH CLEANER Table formatting from the original result was not included. For Patients: Results are automatically released to your [facility] account once available, in compliance with federal regulations. This means that you may see your results before your provider has had a chance to review them. Please allow 2-3 business days for your provider to comment on the results. XR DXA Bone Mineral Density (BMD) EXAM LOCATION: [address] [address] PATIENT NAME: Kathia Terrell DATE OF : 1950 EXAM DATE: 07/18/2023 REQUESTING PROVIDER: Adrianna Heredia PA GENDER AT : female HEIGHT: 5' 3.7 (10/16/2022) WEIGHT: 129 lb (06/21/2023) MENOPAUSAL STATUS: Postmenopausal RACE/ETHNICITY: White RISK FACTORS: Smoking (prior), Weight < 127 lbs., and White Race CURRENT MEDICATION FOR BONE LOSS: NONE INDICATION: Primary biliary cholangitis (HC); Advanced hepatic fibrosis; Pancreatic lesion COMPARISON DATE(S): 2018 DXA scans are compared to prior studies for a patient only when the two (or more) studies were performed on the same scanner. It is not possible to compare data generated on one scanner to data from another because there are not standards in DXA equipment. This applies even if the two scanners are made by the same medicare biller. PROCEDURE: Dual-energy x-ray absorptiometry performed with routine technique. Reporting is completed in the form of a T-score. The T-score represents the standard deviation from peak bone mass based on young healthy adult. A Z-score is used for diagnosis in premenopausal women, and for men under the age of 50. FINDINGS: RESULT LUMBAR SPINE L1 - L3 BMD: 1.246 g/cm2 T-Score: + 0.5 Z-Score: + 2.5 Change from prior in 2019: Increase 3.7%. RESULTS FEMUR Left femoral neck BMD: 0.782 g/cm2 T-Score: - 1.8 Z-Score: + 0.1 Change from prior in 2019: Decrease 5.0%. Right femoral neck BMD: 0.734 g/cm2 T-Score: - 2.2 Z-Score: - 0.3 Change from prior in 2019: Decrease 4.6%. Left hip BMD: 0.845 g/cm2 T-Score: - 1.3 Z-Score: + 0.4 Change from prior in 2019: Decrease 5.3%. Right hip BMD: 0.773 g/cm2 T-Score: - 1.9 Z-Score: - 0.1 Change from prior in 2019: Decrease 7.5%. WHO criteria: Normal: T-score at or above -1 SD Osteopenia: T-score between -1.1 and -2.4 SD Osteoporosis: T-score at or below -2.5 SD FRAX RISK CALCULATION (USED FOR OSTEOPENIA ONLY): 10-year probability of major osteoporotic fracture: 12.4%. 10-year probability of hip fracture: 3.0%. Adrianna EL DEXA Final R esult * XR MAMMO RACHAEL BILAT SCREEN (10/19/2022 1:26 PM CDT) Anatomical Region Laterality Modality BREASTS, Breast Left, Breast Right Bilateral Mammography Impressions 10/20/2022 3:33 PM CDT There is no radiographic evidence for malignancy. Recommend annual mammograms. MAMMOGRAM ASSESSMENT: ACR 1 Negative PATIENTS: You will also receive a letter with your examination results in an easy to read format. If you have questions about your results, please contact your referring provider. Narrative 10/20/2022 3:33 PM CDT For Patients: As a result of the Cures Act, medical imaging exams and procedure reports are released immediately into your electronic medical record. You may view this report before your referring provider. If you have questions, please contact your health care provider. XR MAMMO RACHAEL BILAT SCREEN [[id number]] CLINICAL HISTORY: This is an asymptomatic 72 y.o. patient. INDICATION FOR EXAM: Mammogram Screening. TECHNIQUE: CC & MLO views were obtained. This study was evaluated with the assistance of Computer-Aided Detection. Breast Tomosynthesis was used in interpretation. COMPARISON FILM: Yes 09/27/21 [facility] 08/30/20 [facility] FINDINGS: The breasts have scattered areas of fibroglandular density. There are no dominant masses, suspicious micro calcifications or areas of architectural distortion. us Carola EL MAMMO Final R esult * COLONOSCOPY (02/10/2022 11:09 AM CDT) 02/10/2022 11:0 9 AM CDT Narrative Transcriptions Yan Booker MD - 02/10/2022 12:42 PM CDT Patient Name: Kathia Xander Procedure Date: 02/10/2022 Gender: Female Date of : 1950 Admit Type: Outpatient Procedure: Colonoscopy Proceduralist: Yan Booker MD , Roberta Campbell (Nurse), Adrianna Barker (Nurse) Referring MD: Carola Salomon Indications/Pre-Op Diagnosis: High risk colon cancer surveillance:Personal history of adenoma (10 mm or greater insize), Last colonoscopy: September 2018 Medications: Fentanyl 100 micrograms IV, Midazolam 4 mgIV Procedure Description: The patient had risks, benefits and alternatives explained to andgave informed consent. The patient had a stable cardiopulmonary status and judged an adequate candidate for conscious sedation. The colonoscope was passed through the anus and advanced to thececum, identified by appendiceal orifice and ileocecal valve. Thecolonoscopy was technically difficult and complex due to a redundant colon. The patient tolerated the procedure well. The quality of the bowel preparation was good. The ileocecal valve, appendiceal orifice, and rectum were photographed. Complications: No immediate complications. Estimated Blood Loss & Specimen: Estimated blood loss: none. Specimen collected - Yes and sent to Laboratory Findings: The perianal and digital rectal examinations were normal. The colon (entire examined portion) was significantly redundant. A 2 mm polyp was found in the transverse colon. The polyp wassessile. The polyp was removed with a cold biopsy forceps. Resection and retrieval were complete. Two sessile polyps were found in the proximal ascending colon. The polyps were 3 to 5 mm in size. These polyps were removed with a coldand hot snare. Resection and retrieval were complete. Multiple small and large-mouthed diverticula were found in thesigmoid colon. There was narrowing of the colon in association with the diverticular opening. The exam was otherwise without abnormality. Impressions/Post-Op Diagnosis: - Redundant colon. - One 2 mm polyp in the transverse colon, removed with a cold biopsy forceps. Resected and retrieved. - Two 3 to 5 mm polyps in the proximal ascending colon, removed witha hot snare. Resected and retrieved. - Severe diverticulosis in the sigmoid colon. There was narrowing ofthe colon in association with the diverticular opening. - The examination was otherwise normal. Recommendation: - Patient has a contact number available for emergencies. The signsand symptoms of potential delayed complications were discussed with the patient. Return to normal activities tomorrow. Written discharge instructions were provided to the patient. - Resume previous diet. - Continue present medications. - Await pathology results. - Repeat colonoscopy is recommended with a colowrap. The colonoscopy date will be determined after pathology results from today's exambecome available for review. - Patient's sedation for a repeat study will require Anesthesia staff assistance. Moderate Sedation: A time out was performed before the procedure. Moderate (conscious) sedation was administered by the endoscopy nurse and supervised bythe endoscopist. The following parameters were monitored: oxygensaturation, heart rate, blood pressure, EKG, CO2, respiratory rate, adequacy of pulmonary ventilation and reponse to care. Please refer to the patient's medical record flowsheets and nursing notes for moderate sedation details. Total physician intraservice time was 48 minutes. Yan Booker MD 02/10/2022 12:42:03 PM This report has been signed electronically. Note Initiated On: 02/10/2022 11:09 AM Procedure Code(s): --- Professional --- 63307, Colonoscopy, flexible; with removalof tumor(s), polyp(s), or other lesion(s) bysnare technique 92255, 59, Colonoscopy, flexible; withbiopsy, single or multiple Diagnosis Code(s): --- Professional --- Z86.010, Personal history of colonicpolyps D12.3, Benign neoplasm of transverse colon (hepatic flexure or splenic flexure) D12.2, Benign neoplasm of ascending colon K57.30, Diverticulosis of large intestine without perforation or abscess withoutbleeding Q43.8, Other specified congenitalmalformations of intestine CPT copyright 2020 [employer]. All rights reserved. The codes documented in this report are preliminary and upon handicapped teacher reviewmay be revised to meet current compliance requirements. Scope In: 11:44:48 AM Scope Withdrawal Time 0 hours 12 minutes 56 seconds Scope Out: 12:32:49 PM us Yan Booker MD PROCEDURE ORD Final Res ult * ANTI HCV (09/27/2021 11:15 AM CDT) HEPATITIS C ANTIBODY Non-React donna Non-React donna 09/27/2021 6:39 PM CDT [facility] Comment:Antibodies to HCV no t detected; does not exclude the possibility of exposure to HCV. Blood BLOOD SPECIMEN / Unknown Venipuncture / Unknown 09/27/2021 11:15 AM CDT 09/27/2021 11:15 AM CDT Carola EL SEND OUTS Final R esult [facility] [address] [place] [address], [place] from Last 3 Months or Most Recently Relevant to Health Maintenance Insurance [facility] MEDICARE PB ONLY MEDICARE PART B HB ONLY MEDICARE PART A HB ONLY Care Teams Weapons Specialist Relationship Specialty Start Date End Date Suzie Wilkins DO [address] [place] [address] PCP - General Family Practice 05/11/23 Suzie Wilkins DO [address] [place] [address] Family Practice 02/25/15
--- NOTE | 2025-04-15 18:12 | ED.GENADULT ---
HPI - General Adult General Time Seen by Provider: 18:13 Date Seen: 04/15/25 Chief complaint: Dizziness/Vertigo Stated complaint: dizzy, nausea, vomiting Time Seen by Provider: 04/15/25 18:12 Source: patient, EMS and RN notes reviewed Mode of arrival: EMS Limitations: no limitations History of Present Illness HPI narrative: This 75-year-old female is brought in by EMS for dizziness with nausea vomiting starting last night, not improving. Her symptoms are somewhat nebulous in start time. She was feeling maybe a little lightheaded, felt off making dinner last night and through the night. At about 12 30 she was up starting to vomit. She really noted the spinning sensation after vomiting. With this spinning sensation, she has had difficulty walking. A family member did give her a Zofran around 4:00 a.m. and then she was able to sleep for while, helped with the nausea. She states she has never been this dizzy in her life. 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 At rest, she notes known numbness tingling weakness anywhere. Difficulty attempting to walk due to the feeling of spinning. She does have some chronic seasonal allergies and some sinus drainage but has not been overtly sick. When she threw up last night, did note her right ear popping. She feels worst if she tries to roll onto her right side early on her right side. She notes some minor episodes of brief spinning historically when she has gotten up in the night to go to the bathroom, nothing recent. Patient has an IV in place from EMS, is receiving 500 mL normal saline. She believes she got Zofran, will confirm with nursing staff. Related Data Home Medications ?Medication ?Instructions ?Recorded ?Confirmed bupropion HCl 300 mg 24 hr tablet, mg PO 01/02/22 01/05/22 extended release lisinopril 10 tab 01/02/22 01/05/22 mg-hydrochlorothiazide 12.5 mg tablet sertraline 100 mg tablet mg 01/02/22 01/05/22 vitamin K2 90 mcg capsule 90 mcg PO DAILY 10/25/22 10/25/22 rosuvastatin 20 mg tablet 20 mg PO QPM 04/15/25 04/15/25 Previous Rx's ?Medication ?Instructions ?Recorded hydrocodone 5 mg-acetaminophen 325 1 tab PO Q4-6H PRN pain #20 tabs 01/02/22 mg tablet Allergies Allergy/AdvReac Type Severity Reaction Status Date / Time amoxicillin (From Augmentin) Allergy Unknown Verified 04/15/25 19:38 clavulanic acid (From Allergy Unknown Verified 04/15/25 19:38 Augmentin) erythromycin base Allergy Unknown Verified 04/15/25 19:38 seasonal Allergy Intermediate Uncoded 04/15/25 19:38 Review of Systems Status of ROS: Reports: 6 or more systems reviewed and unremarkable except as noted in History and below [facility] Medical History Skin cancer ?C44.90 - Unspecified malignant neoplasm of skin, unspecified (ICD-10) Adenomatous colon polyp ?D12.6 - Benign neoplasm of colon, unspecified (ICD-10) Depressive disorder ?F32.A - Depression, unspecified (ICD-10) Cirrhosis of liver without ascites ?K74.60 - Unspecified cirrhosis of liver (ICD-10) Allergic rhinitis ?J30.9 - Allergic rhinitis, unspecified (ICD-10) Pancreatic cyst ?K86.2 - Cyst of pancreas (ICD-10) Hyperlipidemia ?E78.5 - Hyperlipidemia, unspecified (ICD-10) Hypertension ?I10 - Essential (primary) hypertension (ICD-10) Surgical History History of tonsillectomy ?Z90.89 - Acquired absence of other organs (ICD-10) H/O arthroscopy of right knee ?Z98.890 - Other specified postprocedural states (ICD-10) Family History Other Heart problem Social History What is your current living situation?: I presently have a place to live Problems where you live: no known problems In the past 12 months, utilities in danger of being shut off: no In past 12 months, lack of transportation kept you from medical appts, meetings, work, or getting things needed for daily living: no In the past 12 mos, have been you worried that your food would run out before you had money to buy more?: never true In the past 12 mos, the food you bought just didn't last and you didn't have money to buy more?: never true Highest level of school completed/degree received: high school graduate Smoking Status: Former smoker Do you use any of these nicotine containing products: None How often do you have a drink containing alcohol: never AUDIT-C Alcohol total score: 0 Non-prescribed substance use: denies use Caffeine: Yes How often does anyone, including family, friends and others, physically hurt you: never How often does anyone, including family, friends and others, insult or talk down to you: never How often does anyone, including family, friends and others, threaten you with harm: never How often does anyone, including family, friends and others, scream or curse at you: never service: No Exam Const: Vital Signs, click to edit/add: Vital Signs - 24 hr 04/15/25 18:14 04/15/25 18:27 04/15/25 20:12 Temperature 98.1 F Pulse Rate [Pulse Oximeter] 67 96 Respiratory Rate 18 18 Blood Pressure [Ri ght Upper Arm] 145/73 H 165/96 H Pulse Oximetry 99 98 97 Oxygen Delivery Me thod Room Air Room Air This 75-year-old female is alert, interactive, no apparent distress, lying in the bed in exam room 6. Pupils are equal round reactive, sclera clear, conjugate gaze. She has right lateral beating nystagmus, horizontal. Speech is normal, oropharynx is normal. TMs and canals are normal. Lungs are clear, good air entry, no wheezing crackles, tachypnea, no accessory muscle use. CV regular rate and rhythm, no murmur, normal S1-S2. Abdomen is soft, nontender, nondistended, organomegaly, rebound or guarding. She has no lower extremity edema. No baseline tremors, no focal sensory or strength changes noted in her extremities. She has symmetrical facial function. Documenting provider has reviewed patient's vital signs: yes Course Course ED Course: This seems to be more consistent with peripheral process on my preliminary evaluation. Will give patient a dose of 2.5 mg IV Valium. Will get some baseline labs on her. Will go low-dose on her Valium in case her liver function is elevated. Reevaluation(s) Time of Reevaluation #1: 18:45 Reevaluation #1: Just re-evaluated patient. Pupils are equal round, I note no resting nystagmus. Looking to the left, there is no nystagmus, looking to the right now there is no nystagmus. When I do head thrusting test, turning to the right, got 2 right lateral beats of nystagmus then it attenuated. There is no movement of her eyes with cover uncover testing. I do not see the fine beating nystagmus to the right that I was seen that was not attenuating before. She did get 4 mg IV Zofran with EMS in the ambulance, confirmed this with her nurse. She had just literally taken the oral 2.5 mg of Valium that I ordered, this would not have taken affect yet. She is not feeling symptomatic while lying in bed when I am doing this testing at this time, turning her head is not bothering her right now. She states when she is symptomatic, turning her head to the right would be problematic. She does admit that any position change when she is feeling more symptomatic is bother some but turning to the right seemed to be the worse. Time of Reevaluation #2: 21:21 Reevaluation #2: Patient required further Zofran after coming back from her head CT, movement caused her to have emesis. She does not note significant symptoms when I do rapid movement or head thrust but she notes if she just turns her head to the right and leaves that there, will increase her symptoms. I have looked at her eyes again, I really cannot see any nystagmus at rest, there was a little bit of right lateral beating nystagmus but not as much as initially. I am not getting any to the left. When I do this examination, does not make her worse. We have reviewed that there is some non significant carotid stenosis in 1 of the carotid arteries on her imaging, this warrants following in risk factor reduction. He has no evidence of acute pathology on her head CT. There is no evidence of sinus disease on her head CT. She is thinking that her sinuses are plugged. She could have mucosal changes within the nasopharynx but there is nothing indicating sinusitis that I can see nor was it commented on by Radiology. Consultations Consultation #1: Have spoken with Stroke Neurology Dr. Lujan. Based on patient's Joseph own, she does agree that head CT imaging and CT angio imaging certainly would not be inappropriate, had planned on ordering this. Reviewed my exam. We went over some details, she will have me go back in and place close attention to the eye exam. We will update her once I have the imaging done, will update her on my examination. She would like had thrusting done too. 8:41 p.m.: Did speak with Dr. Lujan again. as this is difficult to sort out, she does recommend MR imaging of her brain, patient will come into the hospital and have this done tomorrow. She is requesting an 81 mg aspirin. We can continue to work on symptoms for vertigo. Time: 18:32 Consultation #2: Did speak with hospitalist Suzanne Steele, reviewed patient case and she agrees to accept this patient. MR imaging of her brain to be done tomorrow to completely rule out stroke. Time: 21:39 Vital Signs Vital signs: Initial Vital Signs Temperature 98.1 F 04/15/25 18:14 Temperature Source Temporal Artery Scan 04/15/25 18:14 Pulse Rate 67 04/15/25 18:14 Respiratory Rate 18 04/15/25 18:14 Blood Pressure 145/73 H 04/15/25 18:14 Blood Pressure Mean 97 04/15/25 18:14 Blood Pressure Position Supine 04/15/25 18:14 Pulse Oximetry 99 04/15/25 18:14 Oxygen Delivery Method Room Air 04/15/25 18:14 Vital Signs Temperature 98.1 F 04/15/25 18:14 Pulse Rate 67 04/15/25 18:14 Respiratory Rate 18 04/15/25 18:14 Blood Pressure 145/73 H 04/15/25 18:14 Pulse Oximetry 99 04/15/25 18:14 Oxygen Delivery Method Room Air 04/15/25 18:14 Temperature 97.6 F 04/15/25 22:56 Pulse Rate 86 04/15/25 22:56 Respiratory Rate 16 04/15/25 22:56 Blood Pressure 164/74 H 04/15/25 22:56 Pulse Oximetry 97 04/15/25 22:56 Oxygen Delivery Method Room Air 04/15/25 22:56 Medications Administered Medications: Discontinued Medications Generic Name Dose Route Start Last Admin Trade Name Freq PRN Reason Stop Dose Admin Aspirin 81 mg 04/15/25 21:34 11/12/25 22:17 Aspirin 81 Mg Tab.Chew PO 04/15/25 21:35 Not Given ONCE ONE Diazepam 2.5 mg 04/15/25 18:27 04/15/25 18:43 Diazepam 5 Mg Tablet PO 04/15/25 18:28 2.5 mg ONCE ONE Administration Meclizine HCl 25 mg 04/15/25 21:34 04/15/25 22:03 Meclizine Hcl 25 Mg Tablet PO 04/15/25 21:35 25 mg ONCE ONE Administration Ondansetron HCl 4 mg 04/15/25 20:02 04/15/25 20:09 Ondansetron 2 Mg/Ml Inj IVP 04/15/25 20:03 4 mg ONCE ONE Administration Medical Decision Making Lab Data Labs: Lab Results 04/15/25 Range/Units 18:57 WBC 5.80 (4.50-11.00) K/uL RBC 4.66 (4.00-5.20) m/uL Hgb 13.7 (12.0-16.0) gm/dL Hct 42.6 (33.0-51.0) % MCV 91 (80-100) fL MCH 29 (26-34) pg MCHC 32 (32-36) gm/dL RDW Coeff of Garry 14.0 (11.5-15.5) % Plt Count 147 (140-440) K/uL Neut % (Auto) 73.7 H (42.0-72.0) % Lymph % (Auto) 20.0 (20-44) % [place] % (Auto) 5.2 (0.0-11.0) % Eos % (Auto) 0.9 (0.0-7.0) % Baso % (Auto) 0.2 (0.0-3.0) % Neut # (Auto) 4.30 (1.7-7.0) K/uL Lymph # (Auto) 1.16 (0.90-2.90) K/uL [place] # (Auto) 0.30 (0.00-0.90) K/UL Eos # (Auto) 0.05 (0.00-0.50) K/uL Baso # (Auto) 0.01 (0.00-0.30) K/uL Abs Immat Gran (auto) 0.00 (0.00-0.30) K/uL Imm/Tot Granulo (auto) 0.0 % Sodium 139 (135-149) mmol/L Potassium 5.0 (3.6-5.1) mmol/L Chloride 101 (96-114) mmol/L Carbon Dioxide 27 (20-32) mmol/L Anion Gap 11 (7-15) mEq/L BUN 20 (7-30) mg/dL Creatinine 0.8 (0.5-1.5) mg/dL Estimated Creat Clear 41.45 Estimated GFR 78 ml/min Glucose 108 (60-115) mg/dL Calcium 9.5 (8.4-10.6) mg/dL Total Bilirubin 0.7 (0.1-1.5) mg/dL Direct Bilirubin 0.2 (0.0-0.5) mg/dL AST 31 (12-35) U/L ALT 26 (4-35) U/L Alkaline Phosphatase 144 (40-150) U/L Total Protein 7.6 (6.0-8.3) g/dL Albumin 4.5 (3.3-5.0) g/dL Imaging Data CT scan - head: Attestation: I have reviewed the pertinent imaging results. Radiologist's impression: Patient: ANGELINA HOPKINS Facility:?[facility] Patient ID:?[id number] Site Patient ID:?[id number] Site :?1950 Study:?CT-Head W/O-04/15/2025 7:59:46 PM Ordering Physician:Anne-Marie Ferrara Final Report: INDICATION: Vertigo TECHNIQUE: CT of the head without contrast. Coronal and sagittal reformats. Bone and soft tissue algorithms. COMPARISON: CT 10/25/2022 FINDINGS: No acute intracranial hemorrhage or extra-axial collection. No evidence of acute cortical infarction. No mass effect or midline shift. Mild generalized parenchymal volume loss. Mild regions of decreased attenuation within the periventricular and subcortical white matter of both cerebral hemispheres most likely reflect chronic microvascular ischemic disease and age related change in this patient. Vascular calcifications within the carotid siphons. Orbital contents are normal. No calvarial fractures. No lytic or sclerotic osseous lesions within the calvarium or skull base. Scalp and other imaged soft tissue structures are normal. Mastoid air cells are clear. IMPRESSION: No acute intracranial abnormality. No significant changes compared to the prior exam. Please note that all CT scans at this facility use dose modulation, iterative reconstruction, and/or weight-based dosing when appropriate to reduce radiation dose to as low as reasonably achievable. Dictated by Lazraus Heath MD @ 04/15/2025 8:06:11 PM (Electronic Signature) CT- Other: Attestation: I have reviewed the pertinent imaging results. Radiologist's impression: Patient: ANGELINA HOPKINS Facility:?[facility] Patient ID:?[id number] Site Patient ID:?[id number] Site :?1950 Study:?CT-Head Angio w/ 95CC ISOVUE 370-04/15/2025 8:00:19 PM Ordering Physician:Anne-Marie Ferrara Preliminary Report: CTA head: 1. No evidence of proximal artery occlusion, high grade stenosis, aneurysm, dissection, or vascular malformation. 2. Final report per neurointerventional radiology service. Read by:?Lazarus eHath MD @04/15/2025 8:09:12 PM Patient: ANGELIAN HOPKINS Facility:?[facility] Patient ID:?[id number] Site Patient ID:?[id number] Site :?1950 Study:?CT-Neck Angio Angio W/ 95CC ISOVUE 370-04/15/2025 8:00:50 PM Ordering Physician:?Dileep Ferrara Preliminary Report: CTA neck: 1. No evidence of proximal artery occlusion, high grade stenosis, aneurysm, dissection, or vascular malformation. 2. Less than 50 percent ICA stenosis due to plaque. 3. Incidental 3 mm RUL nodule se 6 im 719. Final report per neurointerventional radiology service. Read by:?Lazarus Heath MD @04/15/2025 8:13:02 PM Discharge Plan Discharge Clinical Impression: Vertigo, Nausea & vomiting Patient Disposition: Admitted As Observation
[2025-04-15 18:14] VITALS: BP 145/73; PULSE 67; RESP 18; TEMP 36.7; O2SAT 99; BMI 22.3
[2025-04-15 18:27] VITALS: O2SAT 98
--- NOTE | 2025-04-15 18:39 | CRLHL7_ITS ---
For Patients: As a result of the Century Cures Act, medical imaging exams and procedure reports are released immediately into your electronic medical record. You may view this report before your referring provider. If you have questions, please contact your health care provider. INDICATION: Acute stroke, vertigo. TECHNIQUE: CTA head using intravenous contrast with bolus tracking, 3D angiographic rendering using maximum intensity projection (MIP) and images permanently archived. CTA neck using intravenous contrast with bolus tracking, 3D angiographic rendering using maximum intensity projection (MIP) and images permanently archived. FINDINGS: CTA head: There is normal opacification of the intracranial vasculature. There is no large vessel occlusion or significant intracranial stenosis. No aneurysm is identified. CTA neck: There is carotid atherosclerosis bilaterally. There is atherosclerotic plaque in the proximal right ICA resulting in a mild stenosis, less than 50% by NASCET. There is atherosclerotic plaque in the proximal left ICA resulting in a mild stenosis, less than 50% by NASCET. There is no significant vertebral artery stenosis or dissection. Degenerative changes are noted in the cervical spine. IMPRESSION: No acute intracranial abnormality at CTA. Mild proximal right ICA stenosis, less than 50% by NASCET. Mild proximal left ICA stenosis, less than 50% by NASCET. Please note that all CT scans at this facility use dose modulation, iterative reconstruction, and/or weight-based dosing when appropriate to reduce radiation dose to as low as reasonably achievable. Dictated by Vahe Raines MD @ 04/16/2025 10:19:48 AM (Electronically Signed)
--- NOTE | 2025-04-15 18:39 | CRLHL7_ITS ---
For Patients: As a result of the Century Cures Act, medical imaging exams and procedure reports are released immediately into your electronic medical record. You may view this report before your referring provider. If you have questions, please contact your health care provider. INDICATION: Vertigo TECHNIQUE: CT of the head without contrast. Coronal and sagittal reformats. Bone and soft tissue algorithms. COMPARISON: CT 10/25/2022 FINDINGS: No acute intracranial hemorrhage or extra-axial collection. No evidence of acute cortical infarction. No mass effect or midline shift. Mild generalized parenchymal volume loss. Mild regions of decreased attenuation within the periventricular and subcortical white matter of both cerebral hemispheres most likely reflect chronic microvascular ischemic disease and age related change in this patient. Vascular calcifications within the carotid siphons. Orbital contents are normal. No calvarial fractures. No lytic or sclerotic osseous lesions within the calvarium or skull base. Scalp and other imaged soft tissue structures are normal. Mastoid air cells are clear. IMPRESSION: No acute intracranial abnormality. No significant changes compared to the prior exam. Please note that all CT scans at this facility use dose modulation, iterative reconstruction, and/or weight-based dosing when appropriate to reduce radiation dose to as low as reasonably achievable. Dictated by Lazarus Heath MD @ 04/15/2025 8:06:11 PM (Electronically Signed)
[2025-04-15 19:03] LABS: Hematocrit* 42.6 % (33.0-51.0); Hemoglobin* 13.7 gm/dL (12.0-16.0); Immature Granulocytes Abs Auto 0.00 K/uL (0.00-0.30); Immature Granulocytes Pct Auto 0.0 %; Lymphocytes Absolute Auto 1.16 K/uL (0.90-2.90); Mean Corpuscular HGB Conc 32 gm/dL (32-36); Mean Corpuscular Hemoglobin 29 pg (26-34); Mean Corpuscular Volume 91 fL (80-100); RDW Coefficient of Variation % 14.0 % (11.5-15.5); Red Blood Count* 4.66 m/uL (4.00-5.20); White Blood Count* 5.80 K/uL (4.50-11.00)
[2025-04-15 19:05] LABS: Slide Review Reflex No
[2025-04-15 19:16] LABS: Albumin* 4.5 g/dL (3.3-5.0); Chloride* 101 mmol/L (96-114); Sodium* 139 mmol/L (135-149)
[2025-04-15 19:17] LABS: Potassium* 5.0 mmol/L (3.6-5.1)
[2025-04-15 19:19] LABS: Alanine Aminotransferase* 26 U/L (4-35); Alkaline Phosphatase* 144 U/L (40-150); Anion Gap 11 mEq/L (7-15); Aspartate Amino Transferase* 31 U/L (12-35); Bilirubin Direct* 0.2 mg/dL (0.0-0.5); Bilirubin Total* 0.7 mg/dL (0.1-1.5); Blood Urea Nitrogen* 20 mg/dL (7-30); Calcium* 9.5 mg/dL (8.4-10.6); Carbon Dioxide* 27 mmol/L (20-32); Creatinine* 0.8 mg/dL (0.5-1.5); Est. Creatinine Clearance* 41.45; Estimated Glomerular Filt Rate 78 ml/min; Glucose* 108 mg/dL (60-115); Total Protein* 7.6 g/dL (6.0-8.3)
[2025-04-15] MEDS: ONDANSETRON 2 MG/ML inj 4 MG IVP (20:09)
[2025-04-15 20:12] VITALS: BP 165/96; PULSE 96; RESP 18; O2SAT 97
[2025-04-15] MEDS: MECLIZINE HCL 25 MG TABLET PO (22:03)
--- NOTE | 2025-04-15 22:14 | PM.IMHP1 ---
Assessment and Plan Assessment and plan (1) Vertigo: Problem comment: - with nausea and vomiting - resolving - CT head shows no acute intracranial abnormality. CTA head (prelim) shows no evidence of proximal artery occlusion, high grade stenosis, aneurysm, dissection, or vascular malformation. Less than 50 percent ICA stenosis due to plaque per neuro report - received Valium, Zofran, meclizine in ED - ED provider discussed with Neurology, recommending MRI in the morning with neuro follow-up. Single dose aspirin given in ED - trial Phenergan if remains symptomatic - PT consult for morning Status: Acute (2) Depressive disorder: Problem comment: - pharmacy to review home medications Status: Acute (3) Pulmonary nodule: Problem comment: - incidental finding, preliminary report CTA head shows 3 mm RUL nodule se 6 im 719 - outpatient follow-up Status: Acute Plan MRI in the morning. PT consult. Neurology follow-up for further recommendations. Total Time Spent Total Time Spent: Today I spent 75 minutes seeing the patient, reviewing Expanse and EPIC notes/diagnostics, discussing the care plan with our care time that includes social work, PT/OT, pharmacy, RT, long term and documenting my impressions and plan in the medical record. Hospitalist- H&P: HPI History of Present Illness Date Seen: 04/15/25 Chief complaint: dizzy, nausea, vomiting Narrative: Kathia Ellington is a 75 year old female past medical history significant for depressive disorder, hyperlipidemia, allergic rhinitis, hypertension, cirrhosis of liver with elevated LFTs is admitted to the medical floor from the ED for further management unrelenting vertiginous symptoms. Patient is seen with at bedside. Reports onset of mild nausea and mild dizziness prior to dinner last night 04/14. Was up late and shortly after midnight, nausea and dizziness worsened into room spinning, with onset of vomiting. Had repetitive, violent vomiting overnight. Last episode while was in ED. feeling better now after medications. Has a history of vertigo but does not recall an episode this severe. Last episode was several years ago. In the past, she would use Actifed to alleviate her vertigo. Currently, as in the past, movement of her head to the right side provokes worsening of her vertigo. Has a history of chronic postnasal drainage and sinusitis, left side is the worst. Over the last several days has had some drainage as well as ear fullness. Otherwise denies headache. No recent fevers. Denies chest pain or shortness of breath. Denies abdominal pain, diarrhea. No recent medication changes. ED provider discussed with Neurology, recommending a single dose of aspirin tonight and an MRI of the brain in the morning. PCP is Dr. Wilkins. Review of Systems Narrative: REVIEW OF SYSTEMS: Complete review of systems performed and negative unless otherwise stated in HPI or below. PFSH PFSH Medical History Skin cancer ?C44.90 - Unspecified malignant neoplasm of skin, unspecified (ICD-10) Adenomatous colon polyp ?D12.6 - Benign neoplasm of colon, unspecified (ICD-10) Depressive disorder ?F32.A - Depression, unspecified (ICD-10) Cirrhosis of liver without ascites ?K74.60 - Unspecified cirrhosis of liver (ICD-10) Allergic rhinitis ?J30.9 - Allergic rhinitis, unspecified (ICD-10) Pancreatic cyst ?K86.2 - Cyst of pancreas (ICD-10) Hyperlipidemia ?E78.5 - Hyperlipidemia, unspecified (ICD-10) Hypertension ?I10 - Essential (primary) hypertension (ICD-10) Surgical History History of tonsillectomy ?Z90.89 - Acquired absence of other organs (ICD-10) H/O arthroscopy of right knee ?Z98.890 - Other specified postprocedural states (ICD-10) Family History Other Heart problem Social History What is your current living situation?: I presently have a place to live Problems where you live: no known problems In the past 12 months, utilities in danger of being shut off: no In past 12 months, lack of transportation kept you from medical appts, meetings, work, or getting things needed for daily living: no In the past 12 mos, have been you worried that your food would run out before you had money to buy more?: never true In the past 12 mos, the food you bought just didn't last and you didn't have money to buy more?: never true Highest level of school completed/degree received: high school graduate Smoking Status: Former smoker Do you use any of these nicotine containing products: None How often do you have a drink containing alcohol: never AUDIT-C Alcohol total score: 0 Non-prescribed substance use: denies use Caffeine: Yes How often does anyone, including family, friends and others, physically hurt you: never How often does anyone, including family, friends and others, insult or talk down to you: never How often does anyone, including family, friends and others, threaten you with harm: never How often does anyone, including family, friends and others, scream or curse at you: never service: No Meds Home Medications and Allergies Home Medications ?Medication ?Instructions ?Recorded ?Confirmed ?Type bupropion HCl 300 mg 24 hr tablet, mg PO 01/02/22 01/05/22 History extended release hydrocodone 5 mg-acetaminophen 325 1 tab PO Q4-6H PRN pain #20 tabs 01/02/22 01/05/22 Rx mg tablet lisinopril 10 tab 01/02/22 01/05/22 History mg-hydrochlorothiazide 12.5 mg tablet sertraline 100 mg tablet mg 01/02/22 01/05/22 History vitamin K2 90 mcg capsule 90 mcg PO DAILY 10/25/22 10/25/22 History rosuvastatin 20 mg tablet 20 mg PO QPM 04/15/25 04/15/25 History Allergies Allergy/AdvReac Type Severity Reaction Status Date / Time amoxicillin (From Augmentin) Allergy Unknown Verified 04/15/25 19:38 clavulanic acid (From Allergy Unknown Verified 04/15/25 19:38 Augmentin) erythromycin base Allergy Unknown Verified 04/15/25 19:38 seasonal Allergy Intermediate Uncoded 04/15/25 19:38 Exam Narrative: Exam Narrative: PHYSICAL EXAM General: Pleasant, conversant, NAD HEENT: Normocephalic, atraumatic, sclera white, EOMI, oral mucosa dry. No significant nystagmus at this time Cardiovascular: RRR, S1S2. No pitting edema Pulmonary: CTA bilaterally without rhonchi, rales, expiratory wheezes. No dyspnea Abdominal: Soft, nondistended, NTTP Neurological: Alert, answering questions appropriately, cranial nerves intact, no focal findings Extremities: No gross joint deformity or swelling. AROMI. Neurovascularly intact Skin: Warm, dry. Const: Vital Signs, click to edit/add: Vital Signs - 24 hr 04/15/25 18:14 04/15/25 18:27 04/15/25 20:12 Temperature 98.1 F Pulse Rate [Pulse Oximeter] 67 96 Respiratory Rate 18 18 Blood Pressure [Ri ght Upper Arm] 145/73 H 165/96 H Pulse Oximetry 99 98 97 Oxygen Delivery Me thod Room Air Room Air Hospitalist - H&P: Result Labs Labs: Short CBC 04/15/25 Range/Units 18:57 WBC 5.80 (4.50-11.00) K/uL Hgb 13.7 (12.0-16.0) gm/dL Hct 42.6 (33.0-51.0) % Plt Count 147 (140-440) K/uL BMP 04/15/25 18:57 Sodium 139 Potassium 5.0 Chloride 101 Carbon Dioxide 27 BUN 20 Creatinine 0.8 Glucose 108 Calcium 9.5 Liver Function 04/15/25 Range/Units 18:57 Total Bilirubin 0.7 (0.1-1.5) mg/dL Direct Bilirubin 0.2 (0.0-0.5) mg/dL AST 31 (12-35) U/L ALT 26 (4-35) U/L Alkaline Phosphatase 144 (40-150) U/L Albumin 4.5 (3.3-5.0) g/dL Imaging CT scan - head: Attestation: I have reviewed the pertinent imaging results. Radiologist's impression: No acute intracranial hemorrhage or extra-axial collection. No evidence of acute cortical infarction. No mass effect or midline shift. Mild generalized parenchymal volume loss. Mild regions of decreased attenuation within the periventricular and subcortical white matter of both cerebral hemispheres most likely reflect chronic microvascular ischemic disease and age related change in this patient. Vascular calcifications within the carotid siphons. Orbital contents are normal. No calvarial fractures. No lytic or sclerotic osseous lesions within the calvarium or skull base. Scalp and other imaged soft tissue structures are normal. Mastoid air cells are clear. IMPRESSION: No acute intracranial abnormality. No significant changes compared to the prior exam. CTA head: Attestation: I have reviewed the pertinent imaging results. Radiologist's impression: CTA neck: 1. No evidence of proximal artery occlusion, high grade stenosis, aneurysm, dissection, or vascular malformation. 2. Less than 50 percent ICA stenosis due to plaque. 3. Incidental 3 mm RUL nodule se 6 im 719. Final report per neurointerventional radiology service.
[2025-04-15 22:53] VITALS: BP 164/74; PULSE 86; RESP 16; TEMP 36.4; O2SAT 97
[2025-04-15 22:56] VITALS: BP 164/74; PULSE 86; RESP 16; TEMP 36.4; O2SAT 97
[2025-04-15] MEDS: PROMETHAZINE 25 MG TABLET PO (23:43)
[2025-04-16 05:00] VITALS: BP 118/69; PULSE 80; RESP 18; TEMP 36.9; O2SAT 96
--- NOTE | 2025-04-16 06:00 | CRLHL7_ITS ---
For Patients: As a result of the Century Cures Act, medical imaging exams and procedure reports are released immediately into your electronic medical record. You may view this report before your referring provider. If you have questions, please contact your health care provider. INDICATION: Vertigo. Dizziness. COMPARISON: 04/15/2025. TECHNIQUE: Multiplanar T1, T2, FLAIR and diffusion-weighted imaging. FINDINGS: Mild generalized volume loss. Scattered patchy T2/FLAIR signal hyperintensity within the white matter of both cerebral hemispheres and nina are nonspecific but likely represent chronic deep white matter small vessel ischemic changes. No intracranial hemorrhage. No abnormal ventricular dilatation. Intracranial vascular flow voids are preserved. No mass effect. No midline shift. No restricted diffusion to suggest acute ischemia. No susceptibility artifact of remote hemorrhage. Bilateral orbits are unremarkable. Normal appearing sella. Visualized paranasal sinuses mastoid air cells are unremarkable. IMPRESSION: 1. No acute intracranial abnormality 2. Mild generalized cerebral volume loss. Chronic deep white matter small vessel ischemic changes 3. No acute or chronic intracranial hemorrhage Dictated by Ivan Corona MD @ 04/16/2025 10:59:43 AM (Electronically Signed)
[2025-04-16 06:05] LABS: Hematocrit* 42.8 % (33.0-51.0); Hemoglobin* 13.5 gm/dL (12.0-16.0); Mean Corpuscular HGB Conc 32 gm/dL (32-36); Mean Corpuscular Hemoglobin 29 pg (26-34); Mean Corpuscular Volume 92 fL (80-100); Red Blood Count* 4.63 m/uL (4.00-5.20); White Blood Count* 5.73 K/uL (4.50-11.00)
[2025-04-16 06:09] LABS: Slide Review Reflex No
[2025-04-16 06:16] LABS: Chloride* 105 mmol/L (96-114); Potassium* 5.1 mmol/L (3.6-5.1); Sodium* 141 mmol/L (135-149)
[2025-04-16 06:19] LABS: Anion Gap 6 mEq/L (7-15); Blood Urea Nitrogen* 17 mg/dL (7-30); Carbon Dioxide* 30 mmol/L (20-32); Creatinine* 0.9 mg/dL (0.5-1.5); Est. Creatinine Clearance* 41.45; Estimated Glomerular Filt Rate 68 ml/min
[2025-04-16 06:20] LABS: Calcium* 9.5 mg/dL (8.4-10.6); Glucose* 98 mg/dL (60-115)
--- NOTE | 2025-04-16 06:53 | PC.NURSE ---
Patient Ax4. VSS. Pt up with standby assist. Nausea/dizziness with movement. MRI checklist completed. No complaints of pain. NPO for since midnight.
[2025-04-16] MEDS: PROMETHAZINE 25 MG TABLET PO ×2 (08:06→12:41)
[2025-04-16 08:12] VITALS: BP 162/74; PULSE 75; RESP 18; TEMP 36.9; O2SAT 99
[2025-04-16] MEDS: SODIUM CHLORIDE 0.9 % (FLUSH) 10 ML SYRINGE 5 ML IVF (09:53)
[2025-04-16] MEDS: SERTRALINE 50 MG TABLET PO (09:53)
[2025-04-16 11:06] VITALS: BP 122/62; PULSE 73; RESP 18; TEMP 36.6; O2SAT 95
--- NOTE | 2025-04-16 12:43 | P.DS_ITS ---
DS: Providers Provider Date Seen: 04/16/25 Date of admission: 04/15/25 22:35 Primary care physician: Suzie Wilkins DO Admitting Clinician: Adrianna Woo MD Consults: 04/15/25 22:56 Consult to Physical Therapy [CONS] Routine Comment: Reason(s) for PT Consult:: Evaluate and Treat Any Restrictions?:: No Restrictions Comment: Vertigo like sxs Attending Physician on discharge: Judith Ruiz MD Date of Discharge: 04/16/25 DS: Diagnosis Discharge Diagnosis (1) Vertigo: Status: Acute Problem details: - with associated nausea and vomiting - CT head negative; CTA head and neck negative for proximal artery occlusion, high grade stenosis, aneurysm, dissection, or vascular malformation - received Valium, Zofran, meclizine in ED, ASA - MRI reassuring, followed by Stroke Neuro during stay - trialed Phenergan for symptoms (most helpful therapy) - seen by PT with improvement in symptoms; referred to [facility] [place] upon d/c (2) Depressive disorder: Status: Acute Problem details: - continued home Wellbutrin and Sertraline (3) Pulmonary nodule: Status: Acute Problem details: - incidental finding, preliminary head CTA: 3mm RUL nodule se 6 im 719, (NOT NOTED on formal read) - patient and daughter informed, outpatient follow-up (4) Cirrhosis of liver without ascites: Status: Acute Problem details: - 2/2 primary biliary sclerosing cholangitis with associated Cirrhosis/Elevated LFTs, follows with [facility] as an outpatient - reassuring labs during stay DS: Summary Hospital Course Hospital Course: Libra presented to the emergency room on 04/15/2025 with dizziness, accompanied by intractable nausea and vomiting. In the emergency room, reassuring head CT and CTA of head and neck (preliminary read of CTA of neck noted an incidental 3 mm right upper lobe nodule, not noted on formal read. Recommend outpatient follow-up with PCP). Stroke Neurology consulted and recommended admission for PT evaluations and MRI. MRI obtained 04/16, negative for acute findings. Nausea and vomiting resolved, but intermittent dizziness persisted, controlled with Phenergan. Seen by PT with some improvement in symptoms after Gina-Hallpike maneuver. She was given further education by our PT team, referred to the [facility], and was medically appropriate to discharge home with family on 04/16/2025. Outpatient follow-up with PCP scheduled upon discharge, daughter updated on plan of care and questions answered. Status at Discharge Functional status at discharge: uses cane/walker Overall status at discharge: patient is progressing back to baseline Time Spent with Patient Time attestation: Total time spent providing and/or coordinating discharge services: Time spent: Greater than 30 minutes Specific discharge activities: review of stroke neurology recommendations, collaboration with multidisciplinary team, imaging review, pt education Exam Narrative: Exam Narrative: GEN: Alert and oriented, does not appear toxic. First seen in bed in the morning, later seen ambulating with walker during PT evaluation HEENT: Normal external ears, EOMIs bilaterally, no scleral icterus CV: RRR, No concerning murmurs R: LCTA bilaterally Ext: wwp, no concerning edema Skin: No concerning skin lesions or rashes on exposed skin Neuro: No facial droop, no resting tremor. Did not perform bedside Gina-Hallpike (PT performed) Psych: Appropriate Const: Vital Signs, click to edit/add: Vital Signs - 24 hr 04/15/25 18:14 04/15/25 18:27 04/15/25 20:12 Temperature 98.1 F Pulse Rate [Pulse Oximeter] 67 96 Respiratory Rate 18 18 Blood Pressure [Le ft Arm] Blood Pressure [Ri ght Upper Arm] 145/73 H 165/96 H Pulse Oximetry 99 98 97 Oxygen Delivery Me thod Room Air Room Air 04/15/25 22:53 04/15/25 22:53 04/15/25 22:56 Temperature 97.6 F 97.6 F Pulse Rate [Pulse Oximeter] 86 86 Respiratory Rate 16 16 Blood Pressure [Le ft Arm] 164/74 H 164/74 H Blood Pressure [Ri ght Upper Arm] Pulse Oximetry 97 97 Oxygen Delivery Me thod Room Air Room Air Room Air 04/16/25 05:00 04/16/25 08:12 04/16/25 11:06 Temperature 98.4 F 98.5 F 97.9 F Pulse Rate [Pulse Oximeter] 80 75 73 Respiratory Rate 18 18 18 Blood Pressure [Le ft Arm] 118/69 162/74 H 122/62 Blood Pressure [Ri ght Upper Arm] Pulse Oximetry 96 99 95 Oxygen Delivery Me thod Room Air Room Air Room Air DS: Data Data Completed and Pending Labs on day of discharge: Labs from last 24 hours 04/16/25 04/15/25 05:42 18:57 WBC 5.73 5.80 RBC 4.63 4.66 Hgb 13.5 13.7 Hct 42.8 42.6 MCV 92 91 MCH 29 29 MCHC 32 32 RDW Coeff of Garry 14.0 Plt Count 157 147 Neut % (Auto) 73.7 H Lymph % (Auto) 20.0 Ward % (Auto) 5.2 Eos % (Auto) 0.9 Baso % (Auto) 0.2 Neut # (Auto) 4.30 Lymph # (Auto) 1.16 Ward # (Auto) 0.30 Eos # (Auto) 0.05 Baso # (Auto) 0.01 Abs Immat Gran (auto) 0.00 Imm/Tot Granulo (auto) 0.0 Sodium 141 139 Potassium 5.1 5.0 Chloride 105 101 Carbon Dioxide 30 27 Anion Gap 6 L 11 BUN 17 20 Creatinine 0.9 0.8 Estimated Creat Clear 41.45 41.45 Estimated GFR 68 78 Glucose 98 108 Calcium 9.5 9.5 Total Bilirubin 0.7 Direct Bilirubin 0.2 AST 31 ALT 26 Alkaline Phosphatase 144 Total Protein 7.6 Albumin 4.5 Discharge Plan Discharge Disposition: Home, Self-Care Date of Admission: 04/15/25 22:35 Attending Provider on Discharge: Judith Ruiz Primary Care Provider: Suzie Wilkins Condition: Improved Anticipated Discharge Date/Time: 04/16/25 12:02 Discharge Medications: New promethazine 25 mg Tablet 25 mg PO Q4H PRN (Reason: dizziness, vertigo) Qty: 20 0RF rosuvastatin 20 mg tablet 20 mg PO DAILY Qty: 30 2RF Continued bupropion HCl 150 mg tablet extended release 24 hr 150 mg PO DAILY sertraline 50 mg tablet 50 mg PO DAILY lorazepam 0.5 mg tablet 0.5 mg PO DAILY PRN ursodiol 250 mg tablet 375 - 500 mg PO BID Rx Instructions: 500MG IN AM, 375MG HS cholecalciferol (vitamin D3) 50 mcg (2,000 unit) capsule 4,000 unit PO HS zinc acetate 50 mg (zinc) capsule 50 mg PO DAILY Discontinued rosuvastatin 20 mg tablet 20 mg PO QPM Discharge Orders: Discharge Order (Routine); Ordered 04/16/25 Ordered By: Judith Ruiz Patient Education: Promethazine (By mouth), Vertigo (DC) Additional Instructions: We've put in a referral to the [facility]. As needed Phenergan (Promethazine) for severe symptoms. Dr. Van (Neurologist) also recommends Vitamin D supplementation (1279-5884 IU daily). Stay on your home medications, including your Rosuvastatin. You incidentally had a small nodule in your RIGHT UPPER lung (only noted on the preliminary read of one of your CT scans). Dr. Wilkins will get a copy of this report; good idea to repeat a CT of your chest in 3-6 months. Activity Level: Activity as Tolerated Discharge Diet: Regular Follow Up Appointments: Suzie Wilkins DO [Primary Care Provider, Family Practice] - 04/23/25 1:05 pm Referral Note: [facility] for hospital follow-up, and have symptom check, discuss CT results. Forms: [email or web address] Info Instructions
--- NOTE | 2025-04-16 13:49 | PC.NURSE ---
Pt discharged @ 1337 via wheelchair, accompanied by family member. Going back to home. IV removed. Medications sent home with patient. Pt reports understanding of discharge instructions. DC forms signed, belongings signed. Final room check complete.
== END 2025-04-16 13:37 | disposition home or self-care (01) ==
LOC: ED 22:03 → MEDSURG 22:36
PROVIDERS: Physician Assistant; Admitting Provider Family Medicine; Emergency Provider Family Medicine; PCP Family Medicine; Visit Provider Family Medicine
DX: R42 Dizziness and giddiness (principal); F32.0 Major depressive disorder, single episode, mild; R91.1 Solitary pulmonary nodule; K70.30 Alcoholic cirrhosis of liver without ascites
CPT/HCPCS: 36415; 70450; 70496; 70498; 70551; 80048; 80053; 82248; 85025; 85027; 94761; 96374; 97116; 97161; 99285; A9270; G0378; J2405; Q9967